=== PATIENT | female | born 1945 | race African-American/Black ===

== ENCOUNTER 2017-04-08 04:59 | Inpatient (IN) | payer MEDICARE, OTHER ==
[~2017-04-08] VITALS: Ht 167.6 cm; Wt 78.0 kg
[~2017-04-08 04:59] MED LIST: ALBUTEROL INHALER INH; ALPR-392 PO; ASPI-1073 PO; ATOR20TA PO; CLON0.1T PO; DIGO-26 PO; DILT360C27 PO; ELIQUIS PO; ESOM40CA PO; MINO2.5T19 PO; REV20 PO
[2017-04-08 05:41] LABS: BASOPHILS % 0.3 % (0.0-2.0); EOSINOPHILS % 0.4 % (0.0-5.0); HEMOGLOBIN. 10.4 g/dL (12.0-16.0); LYMPHOCYTES % 11.7 % (20.0-50.0); MEAN CORPUSCULAR HEMOGLOBIN 25.5 pg (28.0-32.0); MEAN CORPUSCULAR VOLUME 80.7 fL (81.0-99.0); MEAN PLATELET VOLUME 8.7 fl (7.4-10.4); MONOCYTES % 7.5 % (2.0-8.0); NEUTROPHILS % 80.1 % (40.0-76.0); PLATELET 175 x1000/uL (130-400); RED BLOOD CELL COUNT 4.09 mill/uL (4.2-5.4); RED CELL DISTRIBUTION WIDTH 18.4 % (11.6-14.6)
[2017-04-08 05:50] LABS: INR 1.1; PROTHROMBIN TIME 11.2 sec (9.4-11.6)
[2017-04-08 05:53] LABS: CARBON DIOXIDE 22 mEq/L (21-32); CHLORIDE 112 mEq/L (98-107)
[2017-04-08] MEDS ORDERED: MORPHINE SULFATE 4 MG/ML CPJ (NOT FOR IM USE) IV STA (07:03)
[2017-04-08] MEDS ORDERED: ONDANSETRON HCL 4MG/2ML VIAL IV STA (07:03)
[2017-04-08 07:49] LABS: INR 1.1; PARTIAL THROMBOPLASTIN TIME 33.1 sec (23.4-31.0); PROTHROMBIN TIME 11.4 sec (9.4-11.6)
[2017-04-08] MEDS ORDERED: PANTOPRAZOLE 80 MG in SODIUM CHLORIDE 0.9% 100 ML IV SCH (11:45)
[2017-04-08] MEDS ORDERED: DIPHENHYDRAMINE 50MG/ML VIAL IV PRN (11:45)
[2017-04-08] MEDS ORDERED: ACETAMINOPHEN 325MG TABLET PO PRN (11:45)
[2017-04-08] MEDS ORDERED: NA PHOS,M-B/NA PHOS,DI-BA ENEMA 118ML PR PRN (11:45)
[2017-04-08] MEDS ORDERED: CLONIDINE 0.1MG TABLET PO PRN ×2 (11:45→12:45)
[2017-04-08] MEDS ORDERED: NITROGLYCERIN 0.4MG TABLET SL SL PRN (11:45)
[2017-04-08] MEDS ORDERED: LORAZEPAM 2MG/ML CPJ IV PRN (11:45)
[2017-04-08] MEDS ORDERED: GUAIFENESIN 200MG/10ML SUGAR FREE UDC PO PRN (11:45)
[2017-04-08] MEDS ORDERED: DOCUSATE SODIUM 100MG CAPSULE PO PRN (11:45)
[2017-04-08] MEDS ORDERED: MORPHINE SULFATE 4 MG/ML CPJ (NOT FOR IM USE) IV PRN (11:45)
[2017-04-08] MEDS ORDERED: DILTIAZEM HCL 60MG TABLET PO SCH (12:00)
[2017-04-08] MEDS: DEXT 5%/LACTATED RINGERS 1,000 ML IV SCH (12:24)
[2017-04-08 12:32] LABS: FOLIC ACID (FOLATE) SERUM 10.6 ng/mL (>5.38)
[2017-04-08] MEDS ORDERED: HYDRALAZINE 20MG/ML VIAL IV PRN (12:45)
[2017-04-08 14:30] LABS: CREATINE KINASE 51 IU/L (26-192); TROPONIN I 0.05 ng/mL (0.00-0.04)
[2017-04-08 14:37] LABS: CREATINE KINASE MB FRACTION < 0.5 ng/mL (0.5-3.6)
[2017-04-08 15:06] LABS: DIGOXIN < 0.1 ng/mL (0.9-2.0)
[2017-04-08] MEDS ORDERED: FERROUS SULFATE 325MG TABLET PO SCH (17:00)
[2017-04-08] MEDS ORDERED: KCL 20MEQ/100ML PREMIX 100 ML IV SCH (19:20)
[2017-04-08 20:00] VITALS: BP_SYST 157; BP_SYST 92; BP_DIAS 55; BP_DIAS 68
[2017-04-08 20:47] LABS: HEMATOCRIT 35.8 % (36.0-48.0); HEMOGLOBIN 11.1 g/dL (12.0-16.0); MEAN CORPUSCULAR HEMOGLOBIN 25.3 pg (28.0-32.0); MEAN CORPUSCULAR VOLUME 81.5 fL (81.0-99.0); PLATELET 180 x1000/uL (130-400); RED CELL DISTRIBUTION WIDTH 17.9 % (11.6-14.6)
[2017-04-08] MEDS: MINOXIDIL 2.5MG TABLET PO SCH (20:50)
[2017-04-08] MEDS: FERROUS SULFATE 325MG TABLET PO SCH (20:50)
[2017-04-08] MEDS: ASCORBIC ACID 500 MG TABLET PO SCH (20:50)
[2017-04-08] MEDS: TRAMADOL 50MG TABLET PO PRN (20:51)
[2017-04-08] MEDS: DILTIAZEM HCL 90MG TABLET PO SCH (20:51)
[2017-04-08] MEDS: SILDENAFIL CITRATE 20MG TABLET PO SCH (22:00)
[2017-04-09] VITALS: BP 108/48
[2017-04-09] MEDS: PANTOPRAZOLE 80 MG in SODIUM CHLORIDE 0.9% 100 ML IV SCH ×2 (01:55→13:08)
[2017-04-09 04:00] VITALS: BP 114/62
[2017-04-09] MEDS: ONDANSETRON HCL 4MG/2ML VIAL IV PRN (06:26)
[2017-04-09] MEDS: SILDENAFIL CITRATE 20MG TABLET PO SCH ×3 (06:27→21:12)
[2017-04-09] MEDS: DILTIAZEM HCL 90MG TABLET PO SCH ×4 (06:28→18:04)
[2017-04-09] MEDS: DEXT 5%/LACTATED RINGERS 1,000 ML IV SCH (06:29)
[2017-04-09 07:46] LABS: BASOPHILS % 0.3 % (0.0-2.0); EOSINOPHILS % 1.3 % (0.0-5.0); HEMATOCRIT. 33.5 % (36.0-48.0); HEMOGLOBIN. 10.6 g/dL (12.0-16.0); LYMPHOCYTES % 14.7 % (20.0-50.0); MEAN CORPUSCULAR HEMOGLOBIN 25.6 pg (28.0-32.0); MEAN CORPUSCULAR VOLUME 80.5 fL (81.0-99.0); MEAN PLATELET VOLUME 9.3 fl (7.4-10.4); MONOCYTES % 12.7 % (2.0-8.0); PLATELET 175 x1000/uL (130-400); RED BLOOD CELL COUNT 4.16 mill/uL (4.2-5.4); RED CELL DISTRIBUTION WIDTH 18.5 % (11.6-14.6)
[2017-04-09 08:00] VITALS: BP 127/73
[2017-04-09 08:11] LABS: CARBON DIOXIDE 22 mEq/L (21-32); CHLORIDE 114 mEq/L (98-107); HDL CHOLESTEROL 38 mg/dL (40-59); LDL CHOLESTEROL 67 mg/dL (5-100); TROPONIN I 0.04 ng/mL (0.00-0.04)
[2017-04-09] MEDS: FERROUS SULFATE 325MG TABLET PO SCH ×3 (08:11→18:04)
[2017-04-09] MEDS: MINOXIDIL 2.5MG TABLET PO SCH ×2 (10:16→21:11)
[2017-04-09] MEDS: ASCORBIC ACID 500 MG TABLET PO SCH ×2 (10:16→21:11)
[2017-04-09 12:17] VITALS: BP 165/85
[2017-04-09] MEDS ORDERED: POTASSIUM CHLORIDE INJ 40 MEQ in DEXT 5% WATER 250 ML IV NR (13:00)
[2017-04-09] MEDS ORDERED: FURO80TA3 PO (13:53)
[2017-04-09] MEDS ORDERED: POTA20TA82 PO (13:53)
[2017-04-09] MEDS ORDERED: AMBR5TAB3 PO (13:54)
[2017-04-09] MEDS ORDERED: ALPRAZOLAM 0.5 MG TABLET PO PRN (14:30)
[2017-04-09 16:00] VITALS: BP 148/82
[2017-04-09] MEDS: LETAIRIS 5 MG PO SCH (18:51)
[2017-04-09 20:00] VITALS: BP 125/59
[2017-04-10] VITALS (7 sets, daily range): BP systolic 88–146; BP diastolic 14–92
[2017-04-10] MEDS: DILTIAZEM HCL 90MG TABLET PO SCH ×5 (00:21→23:56)
[2017-04-10] MEDS: DEXT 5%/LACTATED RINGERS 1,000 ML IV SCH ×3 (00:21→12:51)
[2017-04-10] MEDS: PANTOPRAZOLE 80 MG in SODIUM CHLORIDE 0.9% 100 ML IV SCH ×3 (00:21→17:03)
[2017-04-10] MEDS: SILDENAFIL CITRATE 20MG TABLET PO SCH ×3 (05:42→21:25)
[2017-04-10] MEDS: FERROUS SULFATE 325MG TABLET PO SCH ×3 (05:42→17:58)
[2017-04-10 07:41] LABS: HEMATOCRIT 33.3 % (36.0-48.0); HEMOGLOBIN 10.6 g/dL (12.0-16.0)
[2017-04-10] MEDS: ASCORBIC ACID 500 MG TABLET PO SCH ×2 (08:58→21:25)
[2017-04-10] MEDS: MINOXIDIL 2.5MG TABLET PO SCH ×2 (08:59→21:26)
[2017-04-10] MEDS: LETAIRIS 5 MG PO SCH (08:59)
[2017-04-10] MEDS ORDERED: POTASSIUM CHLORIDE 20MEQ TABLET SR PO NR (13:00)
[2017-04-10] MEDS: APIXABAN 5 MG TABLET PO SCH (15:37)
[2017-04-10] MEDS: ZOLPIDEM TARTRATE 5MG TABLET PO PRN (21:31)
[2017-04-11] VITALS: BP 130/54
[2017-04-11] MEDS: DEXT 5%/LACTATED RINGERS 1,000 ML IV SCH (02:03)
[2017-04-11] MEDS: PANTOPRAZOLE 80 MG in SODIUM CHLORIDE 0.9% 100 ML IV SCH ×2 (02:03→12:20)
[2017-04-11 04:00] VITALS: BP 110/51
[2017-04-11] MEDS: SILDENAFIL CITRATE 20MG TABLET PO SCH ×3 (07:26→22:22)
[2017-04-11] MEDS: DILTIAZEM HCL 90MG TABLET PO SCH ×3 (07:27→17:33)
[2017-04-11 08:00] VITALS: BP 154/58
[2017-04-11] MEDS: BUDESONIDE 0.5MG/2ML NEB HHN SCH ×2 (08:24→19:50)
[2017-04-11] MEDS: ASCORBIC ACID 500 MG TABLET PO SCH ×2 (08:50→22:22)
[2017-04-11] MEDS: APIXABAN 5 MG TABLET PO SCH (08:50)
[2017-04-11] MEDS: MINOXIDIL 2.5MG TABLET PO SCH ×2 (08:50→21:00)
[2017-04-11] MEDS: LETAIRIS 5 MG PO SCH (08:51)
[2017-04-11] MEDS: FERROUS SULFATE 325MG TABLET PO SCH ×3 (08:51→17:15)
[2017-04-11 10:00] LABS: HEMATOCRIT 33.6 % (36.0-48.0); HEMOGLOBIN 10.6 g/dL (12.0-16.0)
[2017-04-11 12:00] VITALS: BP 155/56
[2017-04-11] MEDS: ONDANSETRON HCL 4MG/2ML VIAL IV PRN ×2 (12:20→17:34)
[2017-04-11 16:00] VITALS: BP 131/49
[2017-04-11] MEDS: DIGOXIN 125MCG TABLET PO SCH (17:34)
[2017-04-11] MEDS: IPRATROPIUM/ALBUTEROL 0.5-3(2.5)MG/3ML NEB INH PRN (19:51)
[2017-04-11 20:00] VITALS: BP 120/40
[2017-04-11] MEDS ORDERED: PANTOPRAZOLE SODIUM 40 MG/VIAL IV ONE (21:48)
[2017-04-11] MEDS: ZOLPIDEM TARTRATE 5MG TABLET PO PRN (22:43)
[2017-04-12] VITALS: BP 143/40
[2017-04-12] MEDS: PANTOPRAZOLE 80 MG in SODIUM CHLORIDE 0.9% 100 ML IV SCH ×3 (00:03→22:05)
[2017-04-12] MEDS: DILTIAZEM HCL 90MG TABLET PO SCH ×4 (00:08→18:17)
[2017-04-12] MEDS: DEXT 5%/LACTATED RINGERS 1,000 ML IV SCH ×3 (01:02→21:08)
[2017-04-12 04:00] VITALS: BP 134/48
[2017-04-12 06:14] LABS: BASOPHILS % 0.4 % (0.0-2.0); EOSINOPHILS % 0.6 % (0.0-5.0); HEMATOCRIT. 31.5 % (36.0-48.0); HEMOGLOBIN. 10.2 g/dL (12.0-16.0); LYMPHOCYTES % 22.6 % (20.0-50.0); MEAN CORPUSCULAR HEMOGLOBIN 25.4 pg (28.0-32.0); MEAN PLATELET VOLUME 9.5 fl (7.4-10.4); MONOCYTES % 14.3 % (2.0-8.0); NEUTROPHILS % 62.1 % (40.0-76.0); PLATELET 198 x1000/uL (130-400); RED BLOOD CELL COUNT 3.99 mill/uL (4.2-5.4); RED CELL DISTRIBUTION WIDTH 17.9 % (11.6-14.6)
[2017-04-12] MEDS: FERROUS SULFATE 325MG TABLET PO SCH ×3 (06:14→17:15)
[2017-04-12] MEDS: SILDENAFIL CITRATE 20MG TABLET PO SCH ×3 (06:15→21:08)
[2017-04-12 08:00] VITALS: BP 132/52
[2017-04-12] MEDS: ASCORBIC ACID 500 MG TABLET PO SCH ×2 (09:28→21:07)
[2017-04-12] MEDS: MINOXIDIL 2.5MG TABLET PO SCH ×2 (09:29→21:07)
[2017-04-12] MEDS: LETAIRIS 5 MG PO SCH (09:29)
[2017-04-12] MEDS: BUDESONIDE 0.5MG/2ML NEB HHN SCH ×2 (09:40→21:26)
[2017-04-12] MEDS: IPRATROPIUM/ALBUTEROL 0.5-3(2.5)MG/3ML NEB INH PRN (09:40)
[2017-04-12] MEDS ORDERED: POTASSIUM CHLORIDE 20MEQ TABLET SR PO NR ×2 (11:15→15:15)
[2017-04-12] MEDS: ONDANSETRON HCL 4MG/2ML VIAL IV PRN (11:49)
[2017-04-12 12:00] VITALS: BP 113/43
[2017-04-12] MEDS ORDERED: METOCLOPRAMIDE HCL 10MG/2ML VIAL IV PRN (12:00)
[2017-04-12] MEDS: APIXABAN 5 MG TABLET PO SCH ×2 (12:28→18:17)
[2017-04-12 16:00] VITALS: BP 128/49
[2017-04-12] MEDS: DIGOXIN 125MCG TABLET PO SCH (18:17)
[2017-04-12 20:00] VITALS: BP 141/85
[2017-04-12] MEDS ORDERED: BUDESONIDE 0.5MG/2ML NEB ONE (21:30)
[2017-04-13] VITALS (7 sets, daily range): BP systolic 116–165; BP diastolic 45–74
[2017-04-13] MEDS: DILTIAZEM HCL 90MG TABLET PO SCH ×5 (00:30→23:36)
[2017-04-13] MEDS: ZOLPIDEM TARTRATE 5MG TABLET PO PRN (02:05)
[2017-04-13] MEDS: TRAMADOL 50MG TABLET PO PRN ×2 (02:07→08:25)
[2017-04-13] MEDS: PANTOPRAZOLE 80 MG in SODIUM CHLORIDE 0.9% 100 ML IV SCH ×2 (05:54→16:41)
[2017-04-13] MEDS: FERROUS SULFATE 325MG TABLET PO SCH ×3 (05:56→16:41)
[2017-04-13] MEDS: SILDENAFIL CITRATE 20MG TABLET PO SCH ×3 (05:57→21:54)
[2017-04-13 06:10] LABS: HEMATOCRIT. 31.6 % (36.0-48.0); HEMOGLOBIN. 10.1 g/dL (12.0-16.0); MEAN CORPUSCULAR HEMOGLOBIN 25.1 pg (28.0-32.0); MEAN PLATELET VOLUME 9.8 fl (7.4-10.4); PLATELET 207 x1000/uL (130-400); RED CELL DISTRIBUTION WIDTH 17.2 % (11.6-14.6)
[2017-04-13] MEDS: APIXABAN 5 MG TABLET PO SCH ×2 (08:24→16:41)
[2017-04-13] MEDS: MINOXIDIL 2.5MG TABLET PO SCH ×2 (08:25→21:44)
[2017-04-13] MEDS: ASCORBIC ACID 500 MG TABLET PO SCH ×2 (08:26→21:44)
[2017-04-13] MEDS: LETAIRIS 5 MG PO SCH (08:30)
[2017-04-13] MEDS ORDERED: METHYLPREDNISOLONE SOD SUCC 125 MG/2 ML VIAL IV NR (11:30)
[2017-04-13] MEDS ORDERED: POTASSIUM CHLORIDE 20MEQ TABLET SR PO NR (11:30)
[2017-04-13] MEDS: ONDANSETRON HCL 4MG/2ML VIAL IV PRN ×2 (12:04→23:36)
[2017-04-13] MEDS: DEXT 5%/LACTATED RINGERS 1,000 ML IV SCH (12:04)
[2017-04-13] MEDS ORDERED: DILTIAZEM HCL 5MG/ML 5ML VIAL IV PRN (12:30)
[2017-04-13] MEDS: COLCHICINE 0.6MG TABLET PO SCH ×2 (12:50→21:44)
[2017-04-13] MEDS: ASPIRIN 81MG EC TABLET PO SCH (12:52)
[2017-04-13 16:01] LABS: PLATELET ESTIMATE NORMAL
[2017-04-13] MEDS: DIGOXIN 125MCG TABLET PO SCH (16:55)
[2017-04-14 04:30] VITALS: BP 128/51
[2017-04-14] MEDS: PANTOPRAZOLE 80 MG in SODIUM CHLORIDE 0.9% 100 ML IV SCH ×2 (05:14→12:00)
[2017-04-14] MEDS: DILTIAZEM HCL 90MG TABLET PO SCH ×2 (05:15→11:40)
[2017-04-14] MEDS: SILDENAFIL CITRATE 20MG TABLET PO SCH ×2 (05:15→13:59)
[2017-04-14 08:00] VITALS: BP 132/62
[2017-04-14] MEDS: ASCORBIC ACID 500 MG TABLET PO SCH (08:38)
[2017-04-14] MEDS: ASPIRIN 81MG EC TABLET PO SCH (08:39)
[2017-04-14] MEDS: APIXABAN 5 MG TABLET PO SCH (08:39)
[2017-04-14] MEDS: FERROUS SULFATE 325MG TABLET PO SCH ×2 (08:39→12:01)
[2017-04-14] MEDS: COLCHICINE 0.6MG TABLET PO SCH (08:39)
[2017-04-14] MEDS: LETAIRIS 5 MG PO SCH (08:43)
[2017-04-14] MEDS: MINOXIDIL 2.5MG TABLET PO SCH (08:59)
[2017-04-14] MEDS ORDERED: METOCLOPRAMIDE HCL 10MG TABLET PO PRN (12:15)
[2017-04-14 14:09] VITALS: BP 132/66
== END 2017-04-14 14:50 | disposition home or self-care (01) | DRG 254 ==
LOC: ER 04:59 → SUPCPDRO 11:38 → 5WST 14:02 → EDBEDREQ 14:04 → ENRESERV 17:41
PROVIDERS: ADMIT Internal Medicine; ATTEND Internal Medicine
DX: K92.1 Melena (principal); J96.00 Acute respiratory failure, unspecified whether with hypoxia or hypercapnia; N17.0 Acute kidney failure with tubular necrosis; E44.1 Mild protein-calorie malnutrition; I13.0 Hypertensive heart and chronic kidney disease with heart failure and stage 1 through stage 4 chronic kidney disease, or unspecified chronic kidney disease; I50.32 Chronic diastolic (congestive) heart failure; D62 Acute posthemorrhagic anemia; J44.1 Chronic obstructive pulmonary disease with (acute) exacerbation; K52.9 Noninfective gastroenteritis and colitis, unspecified; E87.6 Hypokalemia; N18.9 Chronic kidney disease, unspecified; I48.2 Chronic atrial fibrillation; K21.9 Gastro-esophageal reflux disease without esophagitis; I73.9 Peripheral vascular disease, unspecified; D50.9 Iron deficiency anemia, unspecified; M10.9 Gout, unspecified; E78.00 Pure hypercholesterolemia, unspecified; E87.5 Hyperkalemia; E78.5 Hyperlipidemia, unspecified; F41.9 Anxiety disorder, unspecified; I25.10 Atherosclerotic heart disease of native coronary artery without angina pectoris; Z79.01 Long term (current) use of anticoagulants; Z68.27 Body mass index [BMI] 27.0-27.9, adult; Z79.82 Long term (current) use of aspirin; Z82.49 Family history of ischemic heart disease and other diseases of the circulatory system; Z87.891 Personal history of nicotine dependence; Z99.81 Dependence on supplemental oxygen; Z88.8 Allergy status to other drugs, medicaments and biological substances; Z88.1 Allergy status to other antibiotic agents; Z79.899 Other long term (current) drug therapy; Z95.820 Peripheral vascular angioplasty status with implants and grafts
CPT/HCPCS: 36415; 71010; 74176; 80048; 80053; 80061; 80162; 82270; 82550; 82553; 82607; 82728; 82746; 83036; 83540; 83550; 83690; 83735; 84443; 84484; 84550; 85014; 85018; 85025; 85027; 85610; 85730; 86850; 86900; 87015; 87045; 87427; 87449; 87493; 89055; 93005; 93970; 94664; 96361; 96374; 99285; C1893; C9113; J1200; J2270; J2405; J2765; J2930; J3480; J7040; J7050; J7060; J7620; J7626

== ENCOUNTER 2017-04-27 09:05 | Inpatient (IN) | payer MEDICARE, OTHER ==
[~2017-04-27] VITALS: Ht 162.6 cm; Wt 83.0 kg
[~2017-04-27 09:05] MED LIST changes: +AMBR5TAB3 PO; +FURO80TA3 PO; +POTA20TA82 PO
[2017-04-27 09:58] LABS: BASOPHILS % 1.1 % (0.0-2.0); EOSINOPHILS % 1.6 % (0.0-5.0); HEMATOCRIT. 31.1 % (36.0-48.0); LYMPHOCYTES % 19.2 % (20.0-50.0); MEAN CORPUSCULAR HEMOGLOBIN 26.3 pg (28.0-32.0); MEAN CORPUSCULAR VOLUME 82.2 fL (81.0-99.0); MEAN PLATELET VOLUME 8.7 fl (7.4-10.4); MONOCYTES % 8.2 % (2.0-8.0); NEUTROPHILS % 69.9 % (40.0-76.0); PLATELET 189 x1000/uL (130-400); RED BLOOD CELL COUNT 3.79 mill/uL (4.2-5.4); RED CELL DISTRIBUTION WIDTH 20.2 % (11.6-14.6)
[2017-04-27 10:05] LABS: CHLORIDE 108 mEq/L (98-107)
[2017-04-27 10:07] LABS: INR 1.1; PROTHROMBIN TIME 11.9 sec (9.4-11.6)
[2017-04-27 10:12] LABS: CARBON DIOXIDE 25 mEq/L (21-32)
[2017-04-27 12:00] LABS: CLARITY URINE CLEAR (CLEAR); COLOR URINE YELLOW (YELLOW); GLUCOSE URINE NEGATIVE (NEGATIVE); KETONES URINE NEGATIVE (NEGATIVE); LEUKOCYTE ESTERASE URINE TRACE (NEGATIVE); NITRITE URINE NEGATIVE (NEGATIVE); OCCULT BLOOD URINE NEGATIVE (NEGATIVE); PROTEIN URINE NEGATIVE (NEGATIVE); SPECIFIC GRAVITY URINE 1.009 (1.005-1.030); UROBILINOGEN URINE 0.2 E.U./dL (0.2-1.0)
[2017-04-27 12:41] LABS: TROPONIN I < 0.02 ng/mL (0.00-0.04)
[2017-04-27 15:03] LABS: BG BASE EXCESS -0.8 mmol/L (-2.0-2.0); BG CARBOXYHEMOGLOBIN 0.4 % (0.5-1.5); BG DEOXYHEMOGLOBIN 11.8 % (0.0-5.0); BG FRACTION INSPIRED OXYGEN 36; BG HCO3 ACT 22.6 mmol/L (22.0-26.0); BG METHEMOGLOBIN 0.1 % (0.0-1.5); BG OXYGEN SATURATION 88.1 % (92.0-98.5); BG OXYHEMOGLOBIN 87.7 % (94.0-97.0); BG PCO2 32.5 mmHg (35.0-45.0); BG PO2 55.5 mmHg (75.0-100.0); BG SAMPLE SITE RIGHT BRACHIAL; BG VENT MODE NASAL CANNULA
[2017-04-27] MEDS ORDERED: NA PHOS,M-B/NA PHOS,DI-BA ENEMA 118ML PR PRN (15:30)
[2017-04-27] MEDS ORDERED: ONDANSETRON HCL 4MG/2ML VIAL IV PRN (15:30)
[2017-04-27] MEDS ORDERED: LORAZEPAM 2MG/ML CPJ IV PRN (15:30)
[2017-04-27] MEDS ORDERED: IPRATROPIUM/ALBUTEROL 0.5-3(2.5)MG/3ML NEB INH PRN (15:30)
[2017-04-27] MEDS ORDERED: NITROGLYCERIN 0.4MG TABLET SL SL PRN (15:30)
[2017-04-27] MEDS ORDERED: MAGNESIUM/ALUMINUM HYDROXIDE/SIMETHICONE 30ML UDC PO PRN (15:30)
[2017-04-27] MEDS ORDERED: ACETAMINOPHEN 325MG TABLET PO PRN (15:30)
[2017-04-27] MEDS ORDERED: GUAIFENESIN 200MG/10ML SUGAR FREE UDC PO PRN (15:30)
[2017-04-27 16:52] LABS: DIGOXIN 0.1 ng/mL (0.9-2.0)
[2017-04-27] MEDS ORDERED: LEVOFLOXACIN 500MG PREMIX 100 ML IV SCH (18:15)
[2017-04-27 21:00] VITALS: BP 144/47
[2017-04-27] MEDS ORDERED: FAMOTIDINE 20MG/2ML VIAL IV SCH (21:00)
[2017-04-27] MEDS ORDERED: ALLO100T PO (21:57)
[2017-04-27] MEDS ORDERED: FERR325T6 PO (21:57)
[2017-04-27 22:00] VITALS: BP 144/47
[2017-04-27] MEDS: APIXABAN 2.5 MG TABLET PO SCH (23:18)
[2017-04-27] MEDS: SILDENAFIL CITRATE 20MG TABLET PO SCH (23:18)
[2017-04-27] MEDS: SPIRONOLACTONE 25MG TABLET PO SCH (23:18)
[2017-04-28] VITALS: BP 142/64
[2017-04-28] MEDS ORDERED: LEVOFLOXACIN 500MG PREMIX 100 ML IV SCH
[2017-04-28 00:25] LABS: CREATINE KINASE MB FRACTION 0.6 ng/mL (0.5-3.6); TROPONIN I 0.02 ng/mL (0.00-0.04)
[2017-04-28] MEDS: FUROSEMIDE 40MG/4ML VIAL IVP SCH ×3 (00:28→21:57)
[2017-04-28] MEDS: DIPHENHYDRAMINE 50MG/ML VIAL IV PRN ×2 (00:28→23:34)
[2017-04-28 04:00] VITALS: BP 128/44
[2017-04-28] MEDS: SILDENAFIL CITRATE 20MG TABLET PO SCH ×3 (06:51→23:34)
[2017-04-28 08:00] VITALS: BP 135/58
[2017-04-28 09:00] LABS: CREATINE KINASE MB FRACTION 0.7 ng/mL (0.5-3.6); TROPONIN I 0.02 ng/mL (0.00-0.04)
[2017-04-28] MEDS: APIXABAN 2.5 MG TABLET PO SCH (09:08)
[2017-04-28] MEDS: FAMOTIDINE 20MG/2ML VIAL IV SCH (09:08)
[2017-04-28] MEDS: ALLOPURINOL 100 MG TABLET PO SCH (09:09)
[2017-04-28] MEDS: SPIRONOLACTONE 25MG TABLET PO SCH ×2 (09:09→22:00)
[2017-04-28 12:00] VITALS: BP 130/61
[2017-04-28 16:00] VITALS: BP 136/89
[2017-04-28] MEDS: APIXABAN 5 MG TABLET PO SCH (17:16)
[2017-04-28] MEDS ORDERED: NON FORMULARY PATIENT HOME MED EA PO SCH (18:15)
[2017-04-28] MEDS: LEVOFLOXACIN 250MG PREMIX 50 ML IV SCH (23:33)
[2017-04-29] MEDS: CLONIDINE 0.1MG TABLET PO PRN ×2 (05:09→23:46)
[2017-04-29] MEDS: SILDENAFIL CITRATE 20MG TABLET PO SCH ×3 (06:31→21:11)
[2017-04-29 08:00] VITALS: BP 152/67
[2017-04-29] MEDS ORDERED: NON FORMULARY PATIENT HOME MED EA PO SCH (09:00)
[2017-04-29] MEDS: FUROSEMIDE 40MG/4ML VIAL IVP SCH ×2 (10:27→21:10)
[2017-04-29] MEDS: SPIRONOLACTONE 25MG TABLET PO SCH ×2 (10:27→21:11)
[2017-04-29] MEDS: FAMOTIDINE 20MG/2ML VIAL IV SCH (10:27)
[2017-04-29] MEDS: ALLOPURINOL 100 MG TABLET PO SCH (10:28)
[2017-04-29] MEDS: DOCUSATE SODIUM 100MG CAPSULE PO PRN (10:28)
[2017-04-29] MEDS: APIXABAN 5 MG TABLET PO SCH ×2 (10:28→17:00)
[2017-04-29 12:00] VITALS: BP 161/89
[2017-04-29 13:24] LABS: BASOPHILS % 1.5 % (0.0-2.0); EOSINOPHILS % 2.3 % (0.0-5.0); HEMATOCRIT. 33.9 % (36.0-48.0); HEMOGLOBIN. 10.6 g/dL (12.0-16.0); LYMPHOCYTES % 19.9 % (20.0-50.0); MEAN CORPUSCULAR HEMOGLOBIN 25.7 pg (28.0-32.0); MEAN CORPUSCULAR VOLUME 81.9 fL (81.0-99.0); MONOCYTES % 9.8 % (2.0-8.0); NEUTROPHILS % 66.5 % (40.0-76.0); PLATELET 205 x1000/uL (130-400); RED BLOOD CELL COUNT 4.13 mill/uL (4.2-5.4); RED CELL DISTRIBUTION WIDTH 20.3 % (11.6-14.6)
[2017-04-29] MEDS: DILTIAZEM HCL 90MG TABLET PO SCH ×3 (14:00→23:46)
[2017-04-29 16:00] VITALS: BP 169/83
[2017-04-29] MEDS: DIGOXIN 125MCG TABLET PO SCH (19:33)
[2017-04-29 20:00] VITALS: BP 168/75
[2017-04-29] MEDS: TRAMADOL 50MG TABLET PO PRN (20:14)
[2017-04-29] MEDS: MORPHINE SULFATE 2 MG/ML CPJ (NOT FOR IM USE) IV PRN (23:34)
[2017-04-29] MEDS: ZOLPIDEM TARTRATE 5MG TABLET PO PRN (23:35)
[2017-04-29] MEDS: LEVOFLOXACIN 250MG PREMIX 50 ML IV SCH (23:47)
[2017-04-30] VITALS: BP 165/73
[2017-04-30 04:00] VITALS: BP 130/65
[2017-04-30] MEDS: DILTIAZEM HCL 90MG TABLET PO SCH ×4 (06:09→23:10)
[2017-04-30] MEDS: SILDENAFIL CITRATE 20MG TABLET PO SCH ×3 (06:09→21:30)
[2017-04-30 08:00] VITALS: BP 128/63
[2017-04-30] MEDS: MORPHINE SULFATE 2 MG/ML CPJ (NOT FOR IM USE) IV PRN ×2 (08:40→21:29)
[2017-04-30] MEDS: ALLOPURINOL 100 MG TABLET PO SCH (10:06)
[2017-04-30] MEDS: FUROSEMIDE 40MG/4ML VIAL IVP SCH ×2 (10:06→21:30)
[2017-04-30] MEDS: FAMOTIDINE 20MG/2ML VIAL IV SCH (10:06)
[2017-04-30] MEDS: APIXABAN 5 MG TABLET PO SCH ×2 (10:06→18:18)
[2017-04-30] MEDS: SPIRONOLACTONE 25MG TABLET PO SCH ×2 (10:07→21:29)
[2017-04-30 12:00] VITALS: BP 120/60
[2017-04-30 16:00] VITALS: BP 140/61
[2017-04-30] MEDS: DIGOXIN 125MCG TABLET PO SCH (18:19)
[2017-04-30 20:00] VITALS: BP 142/64
[2017-04-30] MEDS: ZOLPIDEM TARTRATE 5MG TABLET PO PRN (23:10)
[2017-04-30] MEDS: LEVOFLOXACIN 250MG PREMIX 50 ML IV SCH (23:12)
[2017-05-01] VITALS: BP 155/77
[2017-05-01 08:00] VITALS: BP 155/67
[2017-05-01] MEDS: MORPHINE SULFATE 2 MG/ML CPJ (NOT FOR IM USE) IV PRN (09:50)
[2017-05-01 09:53] LABS: EOSINOPHILS % 2.1 % (0.0-5.0); HEMATOCRIT. 33.4 % (36.0-48.0); HEMOGLOBIN. 10.7 g/dL (12.0-16.0); LYMPHOCYTES % 22.9 % (20.0-50.0); MEAN CORPUSCULAR VOLUME 81.3 fL (81.0-99.0); MEAN PLATELET VOLUME 9.8 fl (7.4-10.4); MONOCYTES % 13.4 % (2.0-8.0); NEUTROPHILS % 60.6 % (40.0-76.0); PLATELET 204 x1000/uL (130-400); RED BLOOD CELL COUNT 4.11 mill/uL (4.2-5.4)
[2017-05-01 12:00] VITALS: BP_SYST 123; BP_SYST 147; BP_DIAS 67; BP_DIAS 68
[2017-05-01] MEDS ORDERED: METHYLPREDNISOLONE SOD SUCC 125 MG/2 ML VIAL IV NR (12:30)
[2017-05-01] MEDS: DOCUSATE SODIUM 100MG CAPSULE PO PRN (12:47)
[2017-05-01 16:20] VITALS: BP 146/71
[2017-05-01] MEDS ORDERED: COLCHICINE 0.6MG TABLET PO SCH (17:00)
[2017-05-01] MEDS: DIGOXIN 125MCG TABLET PO SCH (18:46)
[2017-05-01 20:00] VITALS: BP_SYST 171; BP_SYST 182; BP_DIAS 102; BP_DIAS 89
[2017-05-01] MEDS: FUROSEMIDE 40MG/4ML VIAL IVP SCH (21:50)
[2017-05-01] MEDS: SPIRONOLACTONE 25MG TABLET PO SCH (21:50)
[2017-05-01] MEDS: TRAMADOL 50MG TABLET PO PRN (21:52)
[2017-05-01] MEDS: SILDENAFIL CITRATE 20MG TABLET PO SCH (21:52)
[2017-05-01] MEDS: CEFAZOLIN 1000MG PREMIX 50 ML IV SCH (21:53)
[2017-05-01] MEDS: DILTIAZEM HCL 90MG TABLET PO SCH (23:24)
[2017-05-01] MEDS: ZOLPIDEM TARTRATE 5MG TABLET PO PRN (23:24)
[2017-05-01] MEDS: LEVOFLOXACIN 250MG PREMIX 50 ML IV SCH (23:25)
[2017-05-02] VITALS: BP 105/69
[2017-05-02 04:00] VITALS: BP 170/86
[2017-05-02] MEDS: CLONIDINE 0.1MG TABLET PO PRN (05:03)
[2017-05-02] MEDS: SILDENAFIL CITRATE 20MG TABLET PO SCH ×2 (06:39→14:18)
[2017-05-02] MEDS: DILTIAZEM HCL 90MG TABLET PO SCH ×2 (06:40→12:23)
[2017-05-02 08:00] VITALS: BP 96/69
[2017-05-02] MEDS ORDERED: COLCHICINE 0.6MG TABLET PO SCH (09:00)
[2017-05-02] MEDS: CEFAZOLIN 1000MG PREMIX 50 ML IV SCH (09:42)
[2017-05-02] MEDS: APIXABAN 5 MG TABLET PO SCH (09:43)
[2017-05-02] MEDS: FUROSEMIDE 40MG/4ML VIAL IVP SCH (09:43)
[2017-05-02] MEDS: ALLOPURINOL 100 MG TABLET PO SCH (09:43)
[2017-05-02] MEDS: SPIRONOLACTONE 25MG TABLET PO SCH (09:43)
[2017-05-02] MEDS: FAMOTIDINE 20MG/2ML VIAL IV SCH (09:43)
[2017-05-02 11:18] VITALS: BP_SYST 125; BP_SYST 136; BP_SYST 143; BP_DIAS 53; BP_DIAS 59; BP_DIAS 61
[2017-05-02 12:00] VITALS: BP 125/53
[2017-05-02 16:00] VITALS: BP 142/64
== END 2017-05-02 16:30 | disposition home or self-care (01) | DRG 133 ==
LOC: ER 09:05 → 6WST 13:42 → ENRESERV 17:51 → 5WST 22:14
PROVIDERS: ADMIT Internal Medicine; ATTEND Internal Medicine
DX: J96.01 Acute respiratory failure with hypoxia (principal); N17.9 Acute kidney failure, unspecified; I50.33 Acute on chronic diastolic (congestive) heart failure; I48.1 Persistent atrial fibrillation; I27.20 Pulmonary hypertension, unspecified; E44.1 Mild protein-calorie malnutrition; Z99.81 Dependence on supplemental oxygen; J44.9 Chronic obstructive pulmonary disease, unspecified; I13.0 Hypertensive heart and chronic kidney disease with heart failure and stage 1 through stage 4 chronic kidney disease, or unspecified chronic kidney disease; N39.0 Urinary tract infection, site not specified; D63.8 Anemia in other chronic diseases classified elsewhere; E78.5 Hyperlipidemia, unspecified; F41.9 Anxiety disorder, unspecified; I25.10 Atherosclerotic heart disease of native coronary artery without angina pectoris; I73.9 Peripheral vascular disease, unspecified; K21.9 Gastro-esophageal reflux disease without esophagitis; M10.9 Gout, unspecified; N18.9 Chronic kidney disease, unspecified; R04.0 Epistaxis; Z82.49 Family history of ischemic heart disease and other diseases of the circulatory system; Z87.891 Personal history of nicotine dependence; Z88.0 Allergy status to penicillin; Z88.8 Allergy status to other drugs, medicaments and biological substances; Z68.31 Body mass index [BMI] 31.0-31.9, adult
CPT/HCPCS: 36415; 36600; 71010; 80048; 80053; 80061; 80162; 81001; 82375; 82550; 82553; 82805; 83036; 83735; 83880; 84484; 84550; 85025; 85610; 86850; 86900; 87077; 87086; 87186; 93005; 93970; 99285; J0690; J1200; J1940; J1956; J2270; J2930; J3490; J7030; J7050

== ENCOUNTER 2017-10-22 06:10 | Inpatient (IN) | payer MEDICARE, MEDICAID ==
[~2017-10-22] VITALS: Ht 167.6 cm; Wt 74.9 kg
[~2017-10-22 06:10] MED LIST changes: +ALLO100T PO; +FERR325T6 PO
[2017-10-22] MEDS ORDERED: LIDOCAINE HCL/PF 1% 10 MG/ML 30ML VIAL ONE (07:53)
[2017-10-22] MEDS ORDERED: IODIXANOL 320MG/ML 200ML BOTTLE ONE (07:53)
[2017-10-22] MEDS ORDERED: FENTANYL CITRATE/PF 50MCG/ML 2ML VIAL ONE (08:53)
[2017-10-22] MEDS ORDERED: MIDAZOLAM HCL 2 MG/2 ML VIAL ONE (08:53)
[2017-10-22] MEDS ORDERED: IOVERSOL 240MG/ML 100ML BOTTLE IV ONE (09:04)
[2017-10-22] MEDS ORDERED: CLOPIDOGREL 75MG TABLET ONE (09:44)
[2017-10-22] MEDS ORDERED: ASPIRIN 325MG TABLET ONE (09:44)
[2017-10-22] MEDS ORDERED: CLOPIDOGREL 75MG TABLET PO ONE (10:45)
[2017-10-22] MEDS ORDERED: ACETAMINOPHEN 500MG TABLET ONE (15:39)
[2017-10-22 16:40] VITALS: BP 139/79
[2017-10-22 16:42] VITALS: BP 139/79
[2017-10-22] MEDS ORDERED: ATROPINE SULFATE 1MG/10ML SYR IV PRN (17:08)
[2017-10-22] MEDS ORDERED: HEPARIN SODIUM 1,000 UNIT/1ML VIAL IV ONE (17:41)
[2017-10-22] MEDS: FUROSEMIDE 80MG TABLET PO SCH (17:44)
[2017-10-22 18:00] VITALS: BP 149/68
[2017-10-22] MEDS ORDERED: DIGOXIN 125MCG TABLET PO SCH (18:00)
[2017-10-22 19:30] VITALS: BP 158/71
[2017-10-22] MEDS: CLONIDINE 0.1MG TABLET PO SCH (20:41)
[2017-10-22] MEDS: MINOXIDIL 2.5MG TABLET PO SCH (20:41)
[2017-10-22] MEDS ORDERED: ATORVASTATIN CALCIUM 20MG TABLET PO SCH (21:00)
[2017-10-22 22:00] VITALS: BP_SYST 118; BP_SYST 150; BP_DIAS 61; BP_DIAS 65
[2017-10-22] MEDS: ACETAMINOPHEN 325MG TABLET PO PRN ×2 (22:13→22:17)
[2017-10-22] MEDS: SILDENAFIL CITRATE 20MG TABLET PO SCH (22:17)
[2017-10-23] VITALS (9 sets, daily range): BP systolic 114–155; BP diastolic 54–79
[2017-10-23] MEDS: ALBUTEROL (0.083%) 2.5MG/3ML NEB HHN SCH ×3 (05:29→13:49)
[2017-10-23] MEDS: SILDENAFIL CITRATE 20MG TABLET PO SCH ×2 (05:56→14:25)
[2017-10-23] MEDS ORDERED: OMEPRAZOLE 20MG CAPSULE EXTENDED RELEASE PO SCH (06:50)
[2017-10-23 07:03] LABS: BASOPHILS % 0.8 % (0.0-2.0); EOSINOPHILS % 8.6 % (0.0-5.0); HEMATOCRIT. 39.6 % (36.0-48.0); HEMOGLOBIN. 12.5 g/dL (12.0-16.0); LYMPHOCYTES % 28.6 % (20.0-50.0); MEAN CORPUSCULAR HEMOGLOBIN 25.6 pg (28.0-32.0); MEAN CORPUSCULAR VOLUME 81.1 fL (81.0-99.0); MEAN PLATELET VOLUME 9.8 fl (7.4-10.4); PLATELET 142 x1000/uL (130-400); RED BLOOD CELL COUNT 4.88 mill/uL (4.2-5.4); RED CELL DISTRIBUTION WIDTH 19.2 % (11.6-14.6)
[2017-10-23] MEDS: CLONIDINE 0.1MG TABLET PO SCH (08:34)
[2017-10-23] MEDS: FUROSEMIDE 80MG TABLET PO SCH (08:35)
[2017-10-23] MEDS ORDERED: POTASSIUM CHLORIDE 20MEQ TABLET SR PO SCH (09:00)
[2017-10-23] MEDS ORDERED: DILTIAZEM HCL 360MG CAPSULE SA 24HR PO SCH (09:00)
[2017-10-23] MEDS ORDERED: CLOPIDOGREL 75MG TABLET PO SCH (09:00)
[2017-10-23] MEDS ORDERED: ASPIRIN 81MG EC TABLET PO SCH (09:00)
[2017-10-23] MEDS ORDERED: MEDICATION NOT ON FORMULARY EA (Ambrisentan (Letairis) 5 MG) PO SCH (09:00)
[2017-10-23] MEDS ORDERED: FERROUS SULFATE 325MG TABLET PO SCH (09:00)
[2017-10-23] MEDS ORDERED: ALPRAZOLAM 0.25 MG TABLET PO SCH (09:00)
[2017-10-23] MEDS ORDERED: ALLOPURINOL 100 MG TABLET PO SCH (09:00)
[2017-10-23] MEDS: MINOXIDIL 2.5MG TABLET PO SCH (09:18)
[2017-10-23] MEDS ORDERED: ASPIRIN 325MG TABLET PO SCH (10:00)
== END 2017-10-23 15:29 | disposition home or self-care (01) | DRG 181 ==
LOC: CCL 06:10 → 3WST 06:11
PROVIDERS: ADMIT Specialist; ATTEND Specialist
PROC: 047H3DZ Dilation of Right External Iliac Artery with Intraluminal Device, Percutaneous Approach (ICD-10-PCS; 2017-10-22)
PROC: 047K3Z1 Dilation of Right Femoral Artery using Drug-Coated Balloon, Percutaneous Approach (ICD-10-PCS; 2017-10-22)
PROC: B41F1ZZ Fluoroscopy of Right Lower Extremity Arteries using Low Osmolar Contrast (ICD-10-PCS; 2017-10-22)
PROC: 04CK0ZZ Extirpation of Matter from Right Femoral Artery, Open Approach (ICD-10-PCS; principal; 2017-10-22 08:00)
DX: T82.856A Stenosis of peripheral vascular stent, initial encounter (principal); I27.20 Pulmonary hypertension, unspecified; I11.9 Hypertensive heart disease without heart failure; I25.10 Atherosclerotic heart disease of native coronary artery without angina pectoris; I48.2 Chronic atrial fibrillation; J44.9 Chronic obstructive pulmonary disease, unspecified; K21.9 Gastro-esophageal reflux disease without esophagitis; E78.5 Hyperlipidemia, unspecified; F41.9 Anxiety disorder, unspecified; I08.1 Rheumatic disorders of both mitral and tricuspid valves; I48.1 Persistent atrial fibrillation; N28.9 Disorder of kidney and ureter, unspecified; I73.9 Peripheral vascular disease, unspecified; Z82.49 Family history of ischemic heart disease and other diseases of the circulatory system; Z87.891 Personal history of nicotine dependence; Z79.02 Long term (current) use of antithrombotics/antiplatelets; Z99.81 Dependence on supplemental oxygen; Z79.899 Other long term (current) drug therapy; Y92.89 Other specified places as the place of occurrence of the external cause
CPT/HCPCS: 36415; 37221; 37225; 75710; 80048; 85025; 85347; 94640; C1725; C1760; C1769; C1876; C1885; C1887; C1893; C1894; J1644; J2250; J3010; J3490; J7611; Q9967

== ENCOUNTER 2018-09-15 10:11 | Inpatient (IN) | payer MEDICARE, OTHER ==
[~2018-09-15] VITALS: Ht 167.6 cm; Wt 81.4 kg
[~2018-09-15 10:11] MED LIST changes: +APIX2.5T MT; +ASCO-316 PO; +CLOP75TA16 PO; +DIPH25TA23 PO; -ELIQUIS PO; +HYDR-4001 MT; +IBUP-2030 MT; +OLME40TA18 MT; +P20 MT; +PROM5SYR MT; +TRIA10.82 BOTHNSTRLS
[2018-09-15 11:24] LABS: BASOPHILS % 0.8 % (0.0-2.0); EOSINOPHILS % 0.5 % (0.0-5.0); HEMOGLOBIN. 9.3 g/dL (12.0-16.0); LYMPHOCYTES % 17.5 % (20.0-50.0); MEAN CORPUSCULAR HEMOGLOBIN 21.1 pg (28.0-32.0); MEAN CORPUSCULAR VOLUME 70.2 fL (81.0-99.0); MEAN PLATELET VOLUME 9.4 fl (7.4-10.4); NEUTROPHILS % 76.2 % (40.0-76.0); PLATELET 264 x1000/uL (130-400); RED BLOOD CELL COUNT 4.42 mill/uL (4.2-5.4); RED CELL DISTRIBUTION WIDTH 20.7 % (11.6-14.6)
[2018-09-15 11:31] LABS: CHLORIDE 115 mEq/L (98-107)
[2018-09-15 11:35] LABS: INR 1.1; PARTIAL THROMBOPLASTIN TIME 39.3 sec (23.4-31.0); PROTHROMBIN TIME 11.4 sec (9.1-11.1)
[2018-09-15] MEDS ORDERED: ALBUTEROL (0.083%) 2.5MG/3ML NEB HHN STA (11:38)
[2018-09-15] MEDS ORDERED: IPRATROPIUM BROMIDE (0.02%) 0.5MG/2.5ML NEB HHN STA (11:38)
[2018-09-15] MEDS ORDERED: FUROSEMIDE 40MG/4ML VIAL IVP ONE (11:45)
[2018-09-15 12:03] LABS: DIGOXIN < 0.1 ng/mL (0.9-2.0)
[2018-09-15] MEDS ORDERED: HYDROCODONE/ACETAMINOPHEN 5/325MG TABLET PO PRN (12:45)
[2018-09-15] MEDS ORDERED: IPRATROPIUM/ALBUTEROL 0.5-3(2.5)MG/3ML NEB INH PRN (12:45)
[2018-09-15] MEDS ORDERED: ACETAMINOPHEN 325MG TABLET PO PRN (12:45)
[2018-09-15] MEDS ORDERED: NA PHOS,M-B/NA PHOS,DI-BA ENEMA 118ML PR PRN (12:45)
[2018-09-15] MEDS ORDERED: MAGNESIUM/ALUMINUM HYDROXIDE/SIMETHICONE 30ML UDC PO PRN (12:45)
[2018-09-15] MEDS ORDERED: GUAIFENESIN 200MG/10ML SUGAR FREE UDC PO PRN (12:45)
[2018-09-15] MEDS ORDERED: DIPHENHYDRAMINE 50MG/ML VIAL IV PRN (12:45)
[2018-09-15 12:50] LABS: CLARITY URINE CLEAR (CLEAR); COLOR URINE YELLOW (YELLOW); KETONES URINE NEGATIVE (NEGATIVE); LEUKOCYTE ESTERASE URINE NEGATIVE (NEGATIVE); NITRITE URINE NEGATIVE (NEGATIVE); OCCULT BLOOD URINE NEGATIVE (NEGATIVE); PH URINE 7.5 (4.5-8.0); PROTEIN URINE NEGATIVE (NEGATIVE); SPECIFIC GRAVITY URINE 1.006 (1.005-1.030); UROBILINOGEN URINE 0.2 E.U./dL (0.2-1.0)
[2018-09-15] MEDS: ENOXAPARIN 30MG/0.3ML SYR SUBCUT SCH (13:17)
[2018-09-15] MEDS ORDERED: NON FORMULARY PATIENT HOME MED XX SCH (16:15)
[2018-09-15] MEDS ORDERED: IPRATROPIUM BROMIDE (0.02%) 0.5MG/2.5ML NEB HHN SCH ×3 (16:30→16:45)
[2018-09-15] MEDS ORDERED: IPRATROPIUM/ALBUTEROL 0.5-3(2.5)MG/3ML NEB HHN SCH (18:00)
[2018-09-15] MEDS: LORAZEPAM 2MG/ML CPJ IV PRN (20:37)
[2018-09-15] MEDS: ONDANSETRON HCL 4MG/2ML INJ IV PRN (20:38)
[2018-09-15 22:00] VITALS: BP 159/96
[2018-09-15 22:30] VITALS: BP 159/96
[2018-09-15] MEDS: SILDENAFIL CITRATE 20MG TABLET PO SCH (22:34)
[2018-09-16] VITALS (18 sets, daily range): BP systolic 111–193; BP diastolic 60–107
[2018-09-16] MEDS ORDERED: APIX5TAB PO (00:03)
[2018-09-16] MEDS ORDERED: CLON0.2T PO (00:03)
[2018-09-16] MEDS ORDERED: FURO40TA5 PO (00:21)
[2018-09-16] MEDS ORDERED: DILT240C91 PO (00:31)
[2018-09-16] MEDS ORDERED: PANT40TA4 PO (00:31)
[2018-09-16] MEDS: SILDENAFIL CITRATE 20MG TABLET PO SCH ×3 (05:56→21:57)
[2018-09-16 06:26] LABS: BASOPHILS % 1.6 % (0.0-2.0); EOSINOPHILS % 3.1 % (0.0-5.0); HEMATOCRIT. 27.7 % (36.0-48.0); HEMOGLOBIN. 8.3 g/dL (12.0-16.0); LYMPHOCYTES % 24.9 % (20.0-50.0); MEAN CORPUSCULAR HEMOGLOBIN 20.8 pg (28.0-32.0); MEAN CORPUSCULAR VOLUME 69.6 fL (81.0-99.0); MEAN PLATELET VOLUME 9.4 fl (7.4-10.4); MONOCYTES % 9.7 % (2.0-8.0); NEUTROPHILS % 60.7 % (40.0-76.0); PLATELET 254 x1000/uL (130-400); RED BLOOD CELL COUNT 3.98 mill/uL (4.2-5.4); RED CELL DISTRIBUTION WIDTH 20.7 % (11.6-14.6)
[2018-09-16 06:27] LABS: CHLORIDE 113 mEq/L (98-107)
[2018-09-16 06:40] LABS: T4 FREE 1.32 ng/dL (0.76-1.46)
[2018-09-16] MEDS: ENOXAPARIN 30MG/0.3ML SYR SUBCUT SCH (08:36)
[2018-09-16] MEDS: ASPIRIN 81MG EC TABLET PO SCH (08:37)
[2018-09-16] MEDS: FUROSEMIDE 40MG/4ML VIAL IV SCH (08:37)
[2018-09-16 13:20] LABS: PLATELET ESTIMATE NORMAL
[2018-09-16] MEDS: DILTIAZEM HCL 60MG TABLET PO SCH ×3 (13:40→23:03)
[2018-09-16] MEDS: CLONIDINE 0.1MG TABLET PO PRN ×2 (16:28→21:58)
[2018-09-16] MEDS: LETAIRIS 5 MG PO SCH (16:28)
[2018-09-16] MEDS: LORAZEPAM 2MG/ML CPJ IV PRN (23:03)
[2018-09-17] VITALS (13 sets, daily range): BP systolic 108–178; BP diastolic 49–100
[2018-09-17] MEDS: DILTIAZEM HCL 60MG TABLET PO SCH ×4 (05:35→23:09)
[2018-09-17] MEDS: SILDENAFIL CITRATE 20MG TABLET PO SCH ×3 (05:36→21:21)
[2018-09-17] MEDS: IPRATROPIUM BROMIDE (0.02%) 0.5MG/2.5ML NEB HHN SCH ×2 (07:30→20:42)
[2018-09-17] MEDS: FUROSEMIDE 40MG/4ML VIAL IV SCH (08:30)
[2018-09-17] MEDS: LETAIRIS 5 MG PO SCH (08:33)
[2018-09-17] MEDS: ASPIRIN 81MG EC TABLET PO SCH (08:33)
[2018-09-17 09:03] LABS: EOSINOPHILS % 4.6 % (0.0-5.0); HEMATOCRIT. 29.3 % (36.0-48.0); HEMOGLOBIN. 8.8 g/dL (12.0-16.0); LYMPHOCYTES % 24.4 % (20.0-50.0); MEAN CORPUSCULAR HEMOGLOBIN 21.2 pg (28.0-32.0); MEAN CORPUSCULAR VOLUME 70.2 fL (81.0-99.0); MONOCYTES % 7.5 % (2.0-8.0); NEUTROPHILS % 62.5 % (40.0-76.0); PLATELET 273 x1000/uL (130-400); RED BLOOD CELL COUNT 4.17 mill/uL (4.2-5.4); RED CELL DISTRIBUTION WIDTH 20.6 % (11.6-14.6)
[2018-09-17] MEDS ORDERED: LIDOCAINE HCL 1% 20ML VIAL (Pyxis) INJ ONE ×2 (09:31→10:12)
[2018-09-17] MEDS ORDERED: IODIXANOL 320MG/ML 100 ML BOTTLE IV ONE (09:31)
[2018-09-17] MEDS ORDERED: FENTANYL CITRATE/PF 50MCG/ML 2ML VIAL ONE (09:39)
[2018-09-17] MEDS ORDERED: MIDAZOLAM HCL 2 MG/2 ML VIAL ONE (09:39)
[2018-09-17] MEDS ORDERED: ATROPINE SULFATE 1MG/10ML SYR IV PRN (10:30)
[2018-09-17] MEDS ORDERED: ACETAMINOPHEN 325MG TABLET PO PRN (10:30)
[2018-09-17] MEDS ORDERED: HYDRALAZINE 20MG/ML VIAL ONE (10:31)
[2018-09-17] MEDS ORDERED: NITROGLYCERIN 50MCG/ML 10ML VIAL (CATH LAB) IV ONE (12:00)
[2018-09-17] MEDS: MORPHINE SULFATE 4 MG/ML CPJ (NOT FOR IM USE) IV PRN (12:33)
[2018-09-17] MEDS: CLONIDINE 0.1MG TABLET PO PRN (15:01)
[2018-09-17] MEDS: APIXABAN 5 MG TABLET PO SCH (17:14)
[2018-09-17] MEDS: DOCUSATE SODIUM 100MG CAPSULE PO PRN (17:14)
[2018-09-17] MEDS: ATORVASTATIN CALCIUM 40MG TABLET PO SCH (21:21)
[2018-09-17] MEDS: LORAZEPAM 2MG/ML CPJ IV PRN (23:07)
[2018-09-18] VITALS (15 sets, daily range): BP systolic 94–163; BP diastolic 45–94
[2018-09-18] MEDS: IPRATROPIUM BROMIDE (0.02%) 0.5MG/2.5ML NEB HHN SCH ×4 (01:01→20:37)
[2018-09-18] MEDS: CLONIDINE 0.1MG TABLET PO PRN (01:58)
[2018-09-18] MEDS: SILDENAFIL CITRATE 20MG TABLET PO SCH ×3 (06:17→21:08)
[2018-09-18] MEDS: DILTIAZEM HCL 60MG TABLET PO SCH ×4 (06:17→23:17)
[2018-09-18] MEDS: APIXABAN 5 MG TABLET PO SCH ×2 (08:11→17:17)
[2018-09-18] MEDS: ASPIRIN 81MG EC TABLET PO SCH (08:11)
[2018-09-18] MEDS: FUROSEMIDE 40MG/4ML VIAL IV SCH (08:11)
[2018-09-18] MEDS: DOCUSATE SODIUM 100MG CAPSULE PO PRN (08:11)
[2018-09-18] MEDS: LETAIRIS 5 MG PO SCH (08:12)
[2018-09-18 09:11] LABS: EOSINOPHILS % 3.6 % (0.0-5.0); HEMOGLOBIN. 9.4 g/dL (12.0-16.0); LYMPHOCYTES % 20.8 % (20.0-50.0); MEAN CORPUSCULAR HEMOGLOBIN 21.3 pg (28.0-32.0); MEAN CORPUSCULAR VOLUME 70.4 fL (81.0-99.0); MEAN PLATELET VOLUME 9.2 fl (7.4-10.4); NEUTROPHILS % 68.6 % (40.0-76.0); PLATELET 287 x1000/uL (130-400); RED CELL DISTRIBUTION WIDTH 21.1 % (11.6-14.6)
[2018-09-18] MEDS ORDERED: LACTULOSE 20G/30ML UDC PO NR (15:00)
[2018-09-18] MEDS: ATORVASTATIN CALCIUM 40MG TABLET PO SCH (21:08)
[2018-09-18] MEDS: LORAZEPAM 2MG/ML CPJ IV PRN (23:17)
[2018-09-19] VITALS (12 sets, daily range): BP systolic 110–171; BP diastolic 57–93
[2018-09-19] MEDS: CLONIDINE 0.1MG TABLET PO PRN (01:19)
[2018-09-19] MEDS: IPRATROPIUM BROMIDE (0.02%) 0.5MG/2.5ML NEB HHN SCH ×4 (01:41→20:32)
[2018-09-19] MEDS: LORAZEPAM 2MG/ML CPJ IV PRN (04:50)
[2018-09-19] MEDS: SILDENAFIL CITRATE 20MG TABLET PO SCH ×3 (05:00→21:17)
[2018-09-19] MEDS: DILTIAZEM HCL 60MG TABLET PO SCH (05:01)
[2018-09-19 08:02] LABS: HEMATOCRIT 31.7 % (36.0-48.0); HEMOGLOBIN 9.5 g/dL (12.0-16.0); MEAN CORPUSCULAR HEMOGLOBIN 20.8 pg (28.0-32.0); MEAN CORPUSCULAR VOLUME 68.9 fL (81.0-99.0); PLATELET 281 x1000/uL (130-400); RED BLOOD CELL COUNT 4.59 mill/uL (4.2-5.4); RED CELL DISTRIBUTION WIDTH 20.3 % (11.6-14.6)
[2018-09-19] MEDS: MORPHINE SULFATE 4 MG/ML CPJ (NOT FOR IM USE) IV PRN (08:08)
[2018-09-19] MEDS: APIXABAN 5 MG TABLET PO SCH ×2 (09:57→17:03)
[2018-09-19] MEDS: FUROSEMIDE 40MG/4ML VIAL IV SCH (09:57)
[2018-09-19] MEDS: LETAIRIS 5 MG PO SCH (09:57)
[2018-09-19] MEDS: ASPIRIN 81MG EC TABLET PO SCH (09:57)
[2018-09-19] MEDS ORDERED: KETOROLAC 30MG/ML VIAL IV PRN (11:15)
[2018-09-19] MEDS: DOCUSATE SODIUM 100MG CAPSULE PO PRN (11:54)
[2018-09-19] MEDS: DILTIAZEM HCL 90MG TABLET PO SCH ×3 (12:00→23:53)
[2018-09-19] MEDS: ONDANSETRON HCL 4MG/2ML INJ IV PRN (12:17)
[2018-09-19] MEDS: ATORVASTATIN CALCIUM 40MG TABLET PO SCH (21:17)
[2018-09-20] VITALS (7 sets, daily range): BP systolic 107–137; BP diastolic 48–79
[2018-09-20] MEDS: IPRATROPIUM BROMIDE (0.02%) 0.5MG/2.5ML NEB HHN SCH ×2 (01:51→08:52)
[2018-09-20] MEDS: DILTIAZEM HCL 90MG TABLET PO SCH ×2 (06:36→11:26)
[2018-09-20] MEDS: SILDENAFIL CITRATE 20MG TABLET PO SCH ×2 (06:36→11:26)
[2018-09-20] MEDS ORDERED: LACTULOSE 20G/30ML UDC PO NR (09:00)
[2018-09-20] MEDS: APIXABAN 5 MG TABLET PO SCH (09:08)
[2018-09-20] MEDS: ASPIRIN 81MG EC TABLET PO SCH (09:08)
[2018-09-20] MEDS: LETAIRIS 5 MG PO SCH (09:08)
[2018-09-20] MEDS: FUROSEMIDE 40MG/4ML VIAL IV SCH (09:08)
== END 2018-09-20 12:00 | disposition home or self-care (01) | DRG 192 ==
LOC: ER 10:11 → EDBEDREQ 10:46 → 5EST 12:22 → EDBEDREQTM 12:24 → EDBEDREQ 12:24 → ENRESERV 20:48 → 5EST 09-16 01:20 → 3WST 09-17 11:15
PROVIDERS: ADMIT Internal Medicine; ATTEND Internal Medicine
PROC: 4A023N7 Measurement of Cardiac Sampling and Pressure, Left Heart, Percutaneous Approach (ICD-10-PCS; principal; 2018-09-17)
PROC: B2111ZZ Fluoroscopy of Multiple Coronary Arteries using Low Osmolar Contrast (ICD-10-PCS; 2018-09-17)
DX: I13.0 Hypertensive heart and chronic kidney disease with heart failure and stage 1 through stage 4 chronic kidney disease, or unspecified chronic kidney disease (principal); J96.20 Acute and chronic respiratory failure, unspecified whether with hypoxia or hypercapnia; I21.4 Non-ST elevation (NSTEMI) myocardial infarction; D64.9 Anemia, unspecified; E11.22 Type 2 diabetes mellitus with diabetic chronic kidney disease; I27.20 Pulmonary hypertension, unspecified; I48.2 Chronic atrial fibrillation; E11.51 Type 2 diabetes mellitus with diabetic peripheral angiopathy without gangrene; E46 Unspecified protein-calorie malnutrition; E78.5 Hyperlipidemia, unspecified; G47.00 Insomnia, unspecified; I25.10 Atherosclerotic heart disease of native coronary artery without angina pectoris; J44.9 Chronic obstructive pulmonary disease, unspecified; K21.9 Gastro-esophageal reflux disease without esophagitis; K59.00 Constipation, unspecified; E78.00 Pure hypercholesterolemia, unspecified; M10.9 Gout, unspecified; I50.33 Acute on chronic diastolic (congestive) heart failure; F41.9 Anxiety disorder, unspecified; N18.9 Chronic kidney disease, unspecified; Z82.49 Family history of ischemic heart disease and other diseases of the circulatory system; Z87.891 Personal history of nicotine dependence; Z88.8 Allergy status to other drugs, medicaments and biological substances; Z88.0 Allergy status to penicillin; Z79.899 Other long term (current) drug therapy; Z79.82 Long term (current) use of aspirin; Z68.29 Body mass index [BMI] 29.0-29.9, adult
CPT/HCPCS: 36415; 71045; 71250; 74018; 76857; 78582; 80048; 80162; 83735; 83880; 84439; 84443; 84484; 85027; 85379; 93005; 93458; 93970; 94640; 96372; 96374; 96375; 99291; A9558; C1760; C1769; C1887; C1893; J0360; J1644; J1650; J1885; J1940; J2060; J2250; J2270; J2405; J3010; J3490; J7611; Q9967

== ENCOUNTER 2019-05-09 10:24 | Inpatient (IN) | payer MEDICARE, MEDICAID ==
[~2019-05-09] VITALS: Ht 167.6 cm; Wt 77.6 kg
[~2019-05-09 10:24] MED LIST changes: -ALPR-392 PO; -APIX2.5T MT; +APIX5TAB PO; -CLON0.1T PO; +CLON0.2T PO; -CLOP75TA16 PO; +DILT240C91 PO; -DIPH25TA23 PO; -ESOM40CA PO; -FERR325T6 PO; +FURO40TA5 PO; -FURO80TA3 PO; -IBUP-2030 MT; -MINO2.5T19 PO; -P20 MT; +PANT40TA4 PO; -PROM5SYR MT; -TRIA10.82 BOTHNSTRLS
[2019-05-09] MEDS ORDERED: OXYMETAZOLINE HCL NASAL SPRAY 15ML BOTHNSTRLS SCH (11:30)
[2019-05-09] MEDS ORDERED: PHENYLEPHRINE HCL 0.5% 15ML NASAL SPRAY BOTHNSTRLS SCH (11:45)
[2019-05-09 12:26] LABS: BASOPHILS % 1.1 % (0.0-2.0); EOSINOPHILS % 2.8 % (0.0-5.0); HEMATOCRIT. 43.3 % (36.0-48.0); HEMOGLOBIN. 13.5 g/dL (12.0-16.0); MEAN CORPUSCULAR HEMOGLOBIN 25.2 pg (28.0-32.0); MEAN CORPUSCULAR VOLUME 80.6 fL (81.0-99.0); MEAN PLATELET VOLUME 8.7 fl (7.4-10.4); MONOCYTES % 6.3 % (2.0-8.0); NEUTROPHILS % 64.8 % (40.0-76.0); PLATELET 156 x1000/uL (130-400); RED BLOOD CELL COUNT 5.37 mill/uL (4.2-5.4); RED CELL DISTRIBUTION WIDTH 24.4 % (11.6-14.6)
[2019-05-09 12:33] LABS: CHLORIDE 112 mEq/L (98-107)
[2019-05-09 12:43] LABS: INR 1.1; PARTIAL THROMBOPLASTIN TIME 35.9 sec (23.4-31.0); PROTHROMBIN TIME 11.8 sec (9.6-11.0)
[2019-05-09 13:25] LABS: PLATELET ESTIMATE NORMAL
[2019-05-09] MEDS ORDERED: DOCUSATE SODIUM 100MG CAPSULE PO PRN (17:30)
[2019-05-09] MEDS ORDERED: MAGNESIUM/ALUMINUM HYDROXIDE/SIMETHICONE 30ML UDC PO PRN (17:30)
[2019-05-09] MEDS ORDERED: IPRATROPIUM/ALBUTEROL 0.5-3(2.5)MG/3ML NEB NEB PRN (17:30)
[2019-05-09] MEDS ORDERED: ONDANSETRON HCL 4MG/2ML INJ IV PRN (17:30)
[2019-05-09] MEDS: ACETAMINOPHEN 325MG TABLET PO PRN ×2 (17:37→23:13)
[2019-05-09] MEDS: FUROSEMIDE 40MG/4ML VIAL IV SCH (17:37)
[2019-05-09 19:26] VITALS: BP 161/105
[2019-05-09 20:51] VITALS: BP 161/105
[2019-05-09 23:52] LABS: BASOPHILS % 0.7 % (0.0-2.0); EOSINOPHILS % 3.5 % (0.0-5.0); HEMATOCRIT. 40.7 % (36.0-48.0); HEMOGLOBIN. 12.9 g/dL (12.0-16.0); LYMPHOCYTES % 23.7 % (20.0-50.0); MEAN CORPUSCULAR HEMOGLOBIN 25.1 pg (28.0-32.0); MEAN CORPUSCULAR VOLUME 79.4 fL (81.0-99.0); MEAN PLATELET VOLUME 9.4 fl (7.4-10.4); MONOCYTES % 7.7 % (2.0-8.0); NEUTROPHILS % 64.4 % (40.0-76.0); PLATELET 143 x1000/uL (130-400); RED BLOOD CELL COUNT 5.13 mill/uL (4.2-5.4); RED CELL DISTRIBUTION WIDTH 24.8 % (11.6-14.6)
[2019-05-10] VITALS (7 sets, daily range): BP systolic 145–195; BP diastolic 70–108
[2019-05-10 00:05] LABS: CREATINE KINASE MB FRACTION 1.8 ng/mL (0.5-3.6)
[2019-05-10] MEDS: CLONIDINE 0.1MG TABLET PO PRN ×3 (00:31→17:23)
[2019-05-10 03:43] LABS: *AMPHETAMINES SCREEN URINE NEGATIVE (NEGATIVE); *BARBITURATES SCREEN URINE NEGATIVE (NEGATIVE); *BENZODIAZEPINES SCREEN URINE NEGATIVE (NEGATIVE); *COCAINE SCREEN URINE NEGATIVE (NEGATIVE); METHADONE URINE SCREEN NEGATIVE (NEGATIVE)
[2019-05-10 03:44] LABS: CANNABINOID URINE SCREEN NEGATIVE (NEGATIVE); OPIATES URINE SCREEN NEGATIVE (NEGATIVE); PHENCYCLIDINE URINE SCREEN NEGATIVE (NEGATIVE)
[2019-05-10 04:23] LABS: CLARITY URINE CLEAR (CLEAR); COLOR URINE YELLOW (YELLOW); KETONES URINE NEGATIVE (NEGATIVE); LEUKOCYTE ESTERASE URINE TRACE (NEGATIVE); NITRITE URINE NEGATIVE (NEGATIVE); OCCULT BLOOD URINE NEGATIVE (NEGATIVE); PH URINE 5.5 (4.5-8.0); PROTEIN URINE NEGATIVE (NEGATIVE); SPECIFIC GRAVITY URINE 1.011 (1.005-1.030)
[2019-05-10] MEDS: ACETAMINOPHEN 325MG TABLET PO PRN ×2 (05:37→20:37)
[2019-05-10 07:37] LABS: BASOPHILS % 1.1 % (0.0-2.0); EOSINOPHILS % 4.2 % (0.0-5.0); HEMATOCRIT. 40.6 % (36.0-48.0); HEMOGLOBIN. 13.1 g/dL (12.0-16.0); LYMPHOCYTES % 31.9 % (20.0-50.0); MEAN CORPUSCULAR HEMOGLOBIN 25.2 pg (28.0-32.0); MEAN CORPUSCULAR VOLUME 78.5 fL (81.0-99.0); MEAN PLATELET VOLUME 9.4 fl (7.4-10.4); MONOCYTES % 11.3 % (2.0-8.0); NEUTROPHILS % 51.5 % (40.0-76.0); PLATELET 153 x1000/uL (130-400); RED BLOOD CELL COUNT 5.18 mill/uL (4.2-5.4); RED CELL DISTRIBUTION WIDTH 24.3 % (11.6-14.6)
[2019-05-10 08:36] LABS: CREATINE KINASE MB FRACTION 1.7 ng/mL (0.5-3.6)
[2019-05-10] MEDS: FUROSEMIDE 40MG/4ML VIAL IV SCH (09:27)
[2019-05-10] MEDS ORDERED: HYDRALAZINE 20MG/ML VIAL IV NR (10:00)
[2019-05-10] MEDS ORDERED: MORPHINE SULFATE 2 MG/ML CPJ (NOT FOR IM USE) IV PRN (10:00)
[2019-05-10] MEDS ORDERED: PANTOPRAZOLE 40MG DR TABLET PO NR (10:45)
[2019-05-10] MEDS ORDERED: MAGNESIUM/ALUMINUM HYDROXIDE/SIMETHICONE 30ML UDC PO NR (10:45)
[2019-05-10] MEDS: DILTIAZEM HCL 60MG TABLET PO SCH ×3 (12:38→23:42)
[2019-05-10] MEDS ORDERED: MAGNESIUM/ALUMINUM HYDROXIDE/SIMETHICONE 30ML UDC PO PRN (15:00)
[2019-05-10] MEDS: ATORVASTATIN CALCIUM 20MG TABLET PO SCH (20:37)
[2019-05-10] MEDS: CLONIDINE 0.1MG TABLET PO SCH (20:38)
[2019-05-10] MEDS: ZOLPIDEM TARTRATE 5MG TABLET PO PRN (23:41)
[2019-05-11] VITALS (7 sets, daily range): BP systolic 144–201; BP diastolic 69–92
[2019-05-11] MEDS: PANTOPRAZOLE 40MG DR TABLET PO SCH (05:45)
[2019-05-11] MEDS: DILTIAZEM HCL 60MG TABLET PO SCH ×4 (05:46→23:48)
[2019-05-11 06:57] LABS: BASOPHILS % 1.3 % (0.0-2.0); EOSINOPHILS % 3.6 % (0.0-5.0); HEMATOCRIT. 41.7 % (36.0-48.0); HEMOGLOBIN. 13.4 g/dL (12.0-16.0); LYMPHOCYTES % 22.5 % (20.0-50.0); MEAN CORPUSCULAR HEMOGLOBIN 25.2 pg (28.0-32.0); MEAN CORPUSCULAR VOLUME 78.6 fL (81.0-99.0); MEAN PLATELET VOLUME 9.1 fl (7.4-10.4); NEUTROPHILS % 62.6 % (40.0-76.0); PLATELET 145 x1000/uL (130-400); RED CELL DISTRIBUTION WIDTH 23.7 % (11.6-14.6)
[2019-05-11] MEDS: CLONIDINE 0.1MG TABLET PO SCH ×2 (08:52→20:52)
[2019-05-11] MEDS: FUROSEMIDE 40MG/4ML VIAL IV SCH (08:53)
[2019-05-11] MEDS: HYDROCODONE/ACETAMINOPHEN 5/325MG TABLET PO PRN (11:22)
[2019-05-11] MEDS: CLONIDINE 0.1MG TABLET PO PRN (16:53)
[2019-05-11] MEDS: ATORVASTATIN CALCIUM 20MG TABLET PO SCH (20:50)
[2019-05-11] MEDS: ZOLPIDEM TARTRATE 5MG TABLET PO PRN (23:48)
[2019-05-12] VITALS (7 sets, daily range): BP systolic 146–175; BP diastolic 67–104
[2019-05-12] MEDS: PANTOPRAZOLE 40MG DR TABLET PO SCH (06:15)
[2019-05-12] MEDS: DILTIAZEM HCL 60MG TABLET PO SCH ×3 (06:15→17:34)
[2019-05-12 07:50] LABS: BASOPHILS % 0.9 % (0.0-2.0); EOSINOPHILS % 2.4 % (0.0-5.0); HEMATOCRIT. 42.9 % (36.0-48.0); HEMOGLOBIN. 13.8 g/dL (12.0-16.0); LYMPHOCYTES % 22.9 % (20.0-50.0); MEAN CORPUSCULAR HEMOGLOBIN 25.5 pg (28.0-32.0); MEAN CORPUSCULAR VOLUME 79.1 fL (81.0-99.0); MEAN PLATELET VOLUME 9.1 fl (7.4-10.4); MONOCYTES % 11.2 % (2.0-8.0); NEUTROPHILS % 62.6 % (40.0-76.0); PLATELET 148 x1000/uL (130-400); RED BLOOD CELL COUNT 5.42 mill/uL (4.2-5.4); RED CELL DISTRIBUTION WIDTH 23.6 % (11.6-14.6)
[2019-05-12] MEDS: FUROSEMIDE 40MG/4ML VIAL IV SCH (09:11)
[2019-05-12] MEDS: CLONIDINE 0.1MG TABLET PO SCH ×2 (09:11→21:10)
[2019-05-12] MEDS: HYDROCODONE/ACETAMINOPHEN 5/325MG TABLET PO PRN (09:18)
[2019-05-12] MEDS: CLONIDINE 0.1MG TABLET PO PRN (10:12)
[2019-05-12] MEDS: ATORVASTATIN CALCIUM 20MG TABLET PO SCH (21:10)
[2019-05-12] MEDS: ZOLPIDEM TARTRATE 5MG TABLET PO PRN (23:33)
[2019-05-13] VITALS: BP 229/122
[2019-05-13] MEDS: DILTIAZEM HCL 60MG TABLET PO SCH ×2 (00:16→06:00)
[2019-05-13] MEDS: CLONIDINE 0.1MG TABLET PO PRN ×2 (00:17→06:26)
[2019-05-13 01:30] VITALS: BP 151/78
[2019-05-13 06:00] VITALS: BP 191/99
[2019-05-13] MEDS: PANTOPRAZOLE 40MG DR TABLET PO SCH (06:26)
[2019-05-13 08:00] VITALS: BP 178/84
[2019-05-13] MEDS: CLONIDINE 0.1MG TABLET PO SCH (08:32)
[2019-05-13] MEDS ORDERED: FUROSEMIDE 40MG TABLET PO SCH (09:00)
[2019-05-13 09:50] VITALS: BP 156/86
== END 2019-05-13 11:29 | disposition home or self-care (01) | DRG 194 ==
LOC: ER 10:24 → 5WST 16:22 → ENRESERV 18:50
PROVIDERS: ADMIT Internal Medicine; ATTEND Internal Medicine
DX: I11.0 Hypertensive heart disease with heart failure (principal); E87.8 Other disorders of electrolyte and fluid balance, not elsewhere classified; I27.20 Pulmonary hypertension, unspecified; I48.19 Other persistent atrial fibrillation; E44.1 Mild protein-calorie malnutrition; I50.33 Acute on chronic diastolic (congestive) heart failure; E78.5 Hyperlipidemia, unspecified; I25.10 Atherosclerotic heart disease of native coronary artery without angina pectoris; I25.2 Old myocardial infarction; J44.9 Chronic obstructive pulmonary disease, unspecified; K21.9 Gastro-esophageal reflux disease without esophagitis; R04.0 Epistaxis; Z79.01 Long term (current) use of anticoagulants; E78.00 Pure hypercholesterolemia, unspecified; Z79.899 Other long term (current) drug therapy; Z82.49 Family history of ischemic heart disease and other diseases of the circulatory system; Z87.891 Personal history of nicotine dependence; Z82.3 Family history of stroke; Z88.0 Allergy status to penicillin
CPT/HCPCS: 36415; 71045; 80048; 80061; 80305; 81003; 82550; 82553; 83735; 83880; 84443; 84484; 86850; 86900; 93005; 93970; 96374; 97162; 99285; J0360; J1940; J2270

== ENCOUNTER 2021-10-08 21:04 | Inpatient (IN) | payer MEDICARE, OTHER ==
[~2021-10-08] VITALS: Ht 167.6 cm; Wt 85.8 kg
[~2021-10-08 21:04] MED LIST changes: -APIX5TAB PO; -ASPI-1073 PO; -DIGO-26 PO; -DILT360C27 PO; -PANT40TA4 PO; +PANT40TA51 PO
[2021-10-08] MEDS ORDERED: ONDANSETRON HCL 4MG/2ML INJ IV STA (22:09)
[2021-10-08] MEDS ORDERED: MORPHINE SULFATE 4 MG/ML CPJ (NOT FOR IM USE) IV STA (22:09)
[2021-10-08 23:18] LABS: BASOPHILS % 0.8 % (0.0-2.0); EOSINOPHILS % 2.4 % (0.0-5.0); HEMATOCRIT. 34.9 % (36.0-48.0); HEMOGLOBIN. 11.3 g/dL (12.0-16.0); LYMPHOCYTES % 19.8 % (20.0-50.0); MEAN CORPUSCULAR VOLUME 80.6 fL (81.0-99.0); MEAN PLATELET VOLUME 9.3 fl (7.4-10.4); MONOCYTES % 8.3 % (2.0-8.0); NEUTROPHILS % 68.7 % (40.0-76.0); PLATELET 185 x1000/uL (130-400); RED BLOOD CELL COUNT 4.32 mill/uL (4.2-5.4); RED CELL DISTRIBUTION WIDTH 18.5 % (11.6-14.6)
[2021-10-08 23:25] LABS: CHLORIDE 115 mEq/L (98-107)
[2021-10-09] MEDS ORDERED: CLINDAMYCIN 600 MG in DEXTROSE 5% WATER 50 ML IV ONE (00:15)
[2021-10-09] MEDS ORDERED: CLINDAMYCIN 600MG PREMIX 50 ML IV SCH (01:00)
[2021-10-09] MEDS ORDERED: MAGNESIUM/ALUMINUM HYDROXIDE/SIMETHICONE 30ML UDC PO PRN (02:45)
[2021-10-09] MEDS ORDERED: ACETAMINOPHEN 325MG TABLET PO PRN ×2 (02:45)
[2021-10-09] MEDS ORDERED: ONDANSETRON HCL 4MG/2ML INJ IV PRN (02:45)
[2021-10-09] MEDS ORDERED: DOCUSATE SODIUM 100MG CAPSULE PO PRN (02:45)
[2021-10-09] MEDS ORDERED: ACETAMINOPHEN 650MG SUPP PR PRN ×2 (02:45)
[2021-10-09] MEDS ORDERED: GUAIFENESIN 200MG/10ML SUGAR FREE UDC PO PRN (02:45)
[2021-10-09] MEDS ORDERED: IPRATROPIUM/ALBUTEROL 0.5-3(2.5)MG/3ML NEB HHN PRN (02:45)
[2021-10-09] MEDS ORDERED: NALOXONE HCL 0.4 MG/ML 1ML VIAL IV PRN (03:15)
[2021-10-09] MEDS: CLONIDINE 0.1MG TABLET PO PRN ×3 (05:00→21:13)
[2021-10-09 08:00] VITALS: BP 187/93
[2021-10-09] MEDS ORDERED: ENOXAPARIN 40MG/0.4ML SYR SUBCUT SCH (09:00)
[2021-10-09] MEDS ORDERED: ENOXAPARIN 30MG/0.3ML SYR SUBCUT SCH (09:00)
[2021-10-09] MEDS: MORPHINE SULFATE 2 MG/ML CPJ (NOT FOR IM USE) IV PRN ×2 (09:26→18:56)
[2021-10-09] MEDS ORDERED: APIX2.5T PO (10:17)
[2021-10-09 10:43] LABS: EOSINOPHILS % 4.1 % (0.0-5.0); HEMATOCRIT. 33.9 % (36.0-48.0); LYMPHOCYTES % 18.9 % (20.0-50.0); MEAN CORPUSCULAR HEMOGLOBIN 26.4 pg (28.0-32.0); MEAN PLATELET VOLUME 9.3 fl (7.4-10.4); MONOCYTES % 7.9 % (2.0-8.0); NEUTROPHILS % 68.1 % (40.0-76.0); PLATELET 175 x1000/uL (130-400); RED BLOOD CELL COUNT 4.18 mill/uL (4.2-5.4); RED CELL DISTRIBUTION WIDTH 18.4 % (11.6-14.6)
[2021-10-09] MEDS ORDERED: ENOXAPARIN 60MG/0.6ML SYR SUBCUT SCH (11:00)
[2021-10-09] MEDS ORDERED: AMLODIPINE 5MG TABLET PO SCH (11:00)
[2021-10-09] MEDS: METOPROLOL TARTRATE 25MG TABLET PO SCH ×2 (11:58→21:13)
[2021-10-09 12:00] VITALS: BP 177/73
[2021-10-09 12:24] LABS: CHLORIDE 113 mEq/L (98-107)
[2021-10-09 12:34] LABS: LDL CHOLESTEROL 71 mg/dL (5-100)
[2021-10-09 12:36] LABS: CREATINE KINASE 75 IU/L (26-192); HDL CHOLESTEROL 52 mg/dL (40-59)
[2021-10-09] MEDS: BENAZEPRIL 10MG TABLET PO SCH ×2 (14:13→18:55)
[2021-10-09] MEDS ORDERED: FUROSEMIDE 40MG TABLET PO SCH (15:45)
[2021-10-09 16:00] VITALS: BP 161/78
[2021-10-09 16:51] LABS: CLARITY URINE CLEAR (CLEAR); COLOR URINE YELLOW (YELLOW); KETONES URINE NEGATIVE (NEGATIVE); LEUKOCYTE ESTERASE URINE NEGATIVE (NEGATIVE); NITRITE URINE NEGATIVE (NEGATIVE); OCCULT BLOOD URINE NEGATIVE (NEGATIVE); PH URINE 6.5 (4.5-8.0); PROTEIN URINE 1+ (NEGATIVE); SPECIFIC GRAVITY URINE 1.017 (1.005-1.030)
[2021-10-09] MEDS: DILTIAZEM HCL 60MG TABLET PO SCH (18:55)
[2021-10-09 20:00] VITALS: BP 166/73
[2021-10-09] MEDS ORDERED: ATORVASTATIN CALCIUM 20MG TABLET PO SCH (21:00)
[2021-10-10] VITALS: BP 158/67
[2021-10-10] MEDS: DILTIAZEM HCL 60MG TABLET PO SCH ×2 (00:53→05:14)
[2021-10-10] MEDS: CLINDAMYCIN 300 MG in DEXTROSE 5% WATER 50 ML IV SCH ×2 (03:09→10:04)
[2021-10-10 04:00] VITALS: BP 162/85
[2021-10-10] MEDS: CLONIDINE 0.1MG TABLET PO PRN (05:14)
[2021-10-10 07:45] LABS: BASOPHILS % 0.6 % (0.0-2.0); EOSINOPHILS % 4.3 % (0.0-5.0); HEMATOCRIT. 34.2 % (36.0-48.0); HEMOGLOBIN. 10.8 g/dL (12.0-16.0); LYMPHOCYTES % 19.3 % (20.0-50.0); MEAN CORPUSCULAR HEMOGLOBIN 25.5 pg (28.0-32.0); MEAN CORPUSCULAR VOLUME 81.1 fL (81.0-99.0); MEAN PLATELET VOLUME 9.5 fl (7.4-10.4); MONOCYTES % 9.8 % (2.0-8.0); PLATELET 183 x1000/uL (130-400); RED BLOOD CELL COUNT 4.22 mill/uL (4.2-5.4); RED CELL DISTRIBUTION WIDTH 18.8 % (11.6-14.6)
[2021-10-10 08:00] VITALS: BP 136/76
[2021-10-10] MEDS ORDERED: AMLODIPINE 5MG TABLET PO SCH (09:00)
[2021-10-10] MEDS ORDERED: METOPROLOL TARTRATE 25MG TABLET PO SCH (09:00)
[2021-10-10] MEDS ORDERED: ENOXAPARIN 80MG/0.8ML SYR SUBCUT SCH (09:00)
[2021-10-10] MEDS: MORPHINE SULFATE 2 MG/ML CPJ (NOT FOR IM USE) IV PRN ×2 (10:12→16:16)
[2021-10-10 12:00] VITALS: BP 169/76
[2021-10-10 16:00] VITALS: BP 126/50
[2021-10-10 16:53] VITALS: BP 158/83
== END 2021-10-10 18:16 | disposition short-term general hospital (02) | DRG 383 ==
LOC: ER 21:04 → MICUSO 10-09 02:16 → 8WST 10-09 05:30 → 6WST 10-09 07:57
PROVIDERS: ADMIT Family Medicine Adult Medicine; ATTEND Family Medicine Adult Medicine
DX: L03.115 Cellulitis of right lower limb (principal); N17.0 Acute kidney failure with tubular necrosis; J96.10 Chronic respiratory failure, unspecified whether with hypoxia or hypercapnia; E44.1 Mild protein-calorie malnutrition; I50.9 Heart failure, unspecified; I48.20 Chronic atrial fibrillation, unspecified; I13.0 Hypertensive heart and chronic kidney disease with heart failure and stage 1 through stage 4 chronic kidney disease, or unspecified chronic kidney disease; D64.9 Anemia, unspecified; S80.11XA Contusion of right lower leg, initial encounter; N18.30 Chronic kidney disease, stage 3 unspecified; I16.0 Hypertensive urgency; J44.1 Chronic obstructive pulmonary disease with (acute) exacerbation; I07.1 Rheumatic tricuspid insufficiency; X58.XXXA Exposure to other specified factors, initial encounter; E78.5 Hyperlipidemia, unspecified; I25.10 Atherosclerotic heart disease of native coronary artery without angina pectoris; I73.9 Peripheral vascular disease, unspecified; M10.9 Gout, unspecified; Z68.30 Body mass index [BMI] 30.0-30.9, adult; I25.2 Old myocardial infarction; Z79.01 Long term (current) use of anticoagulants; Z79.899 Other long term (current) drug therapy; Z82.49 Family history of ischemic heart disease and other diseases of the circulatory system; Z87.891 Personal history of nicotine dependence; Z88.0 Allergy status to penicillin; Z99.81 Dependence on supplemental oxygen; Z88.8 Allergy status to other drugs, medicaments and biological substances; Y93.89 Activity, other specified; Y92.89 Other specified places as the place of occurrence of the external cause; Y99.8 Other external cause status; M71.21 Synovial cyst of popliteal space [Baker], right knee
CPT/HCPCS: 36415; 71045; 73590; 80048; 80053; 80061; 81003; 82550; 83735; 83880; 84443; 84484; 85025; 93005; 93306; 93971; 99285; J1650; J2270; J2405; J3490; J7040; J7060

== ENCOUNTER → 2022-04-30 | Outpatient (CLI) | payer MEDICARE, MEDICAID ==
[~2022-04-30] MED LIST changes: +ACET-2708 PO; +APIX2.5T PO; +APIX5TAB PO; +ASCO-339 PO; +ASPI-1497 PO; +CHOL200026 PO; +CYAN250010 PO; +DEXL60CA3 PO; +FERR325T23 PO; +IPRA42SP INH; +LORA-250 PO; +P20 PO; +POTA-204 PO; -POTA20TA82 PO; +ZINC220T3 PO
== END | disposition home or self-care (01) ==
LOC: LAB 10:09
PROVIDERS: ATTEND Surgery Vascular Surgery
DX: Z20.822 Contact with and (suspected) exposure to COVID-19 (principal)
CPT/HCPCS: 87426; C9803

== ENCOUNTER 2022-05-02 05:15 | Inpatient (IN) | payer MEDICARE, MEDICAID ==
[2022-05-02] VITALS (21 sets, daily range): BP systolic 100–183; BP diastolic 54–86
[~2022-05-02] VITALS: Ht 167.6 cm; Wt 81.8 kg
[~2022-05-02 05:15] MED LIST changes: -APIX2.5T PO; -ASCO-316 PO; -ASPI-1497 PO; -PANT40TA51 PO
[2022-05-02 06:08] LABS: BASOPHILS % 0.8 % (0.0-2.0); EOSINOPHILS % 2.7 % (0.0-5.0); HEMOGLOBIN. 12.1 g/dL (12.0-16.0); LYMPHOCYTES % 19.9 % (20.0-50.0); MEAN CORPUSCULAR HEMOGLOBIN 26.5 pg (28.0-32.0); MEAN PLATELET VOLUME 9.2 fl (7.4-10.4); MONOCYTES % 7.8 % (2.0-8.0); NEUTROPHILS % 68.8 % (40.0-76.0); PLATELET 197 x1000/uL (130-400); RED BLOOD CELL COUNT 4.58 mill/uL (4.2-5.4); RED CELL DISTRIBUTION WIDTH 19.3 % (11.6-14.6)
[2022-05-02 06:17] LABS: PARTIAL THROMBOPLASTIN TIME 32.2 sec (23.4-31.0); PROTHROMBIN TIME 11.1 sec (9.6-11.0)
[2022-05-02] MEDS ORDERED: POLYMYXIN B SULFATE 500000 UNITS/VIAL ONE (06:36)
[2022-05-02] MEDS ORDERED: LIDOCAINE HCL 1% 10 MG/ML 10ML VIAL ONE (06:36)
[2022-05-02] MEDS ORDERED: HEPARIN SODIUM 1,000 UNIT/1ML VIAL IV ONE ×2 (06:36→07:05)
[2022-05-02] MEDS ORDERED: BACITRACIN 15GM TUBE TOP ONE (06:36)
[2022-05-02] MEDS ORDERED: THROMBIN (BOVINE) 5000 UNITS/VIAL TOP ONE (06:36)
[2022-05-02] MEDS ORDERED: BUPIVACAINE HCL/PF 0.5% (5MG/ML) 10ML ONE ×2 (06:37→09:19)
[2022-05-02] MEDS ORDERED: PAPAVERINE HCL 30 MG/ML 2ML IV ONE (06:58)
[2022-05-02] MEDS ORDERED: SODIUM CHLORIDE 0.9% 1,000 ML IV SCH (07:00)
[2022-05-02] MEDS ORDERED: HEPARIN 1000 UNITS/ML 10ML ONE (07:06)
[2022-05-02] MEDS ORDERED: NALOXONE HCL 0.4MG/ML VIAL IV PRN (07:30)
[2022-05-02] MEDS ORDERED: ALBUTEROL 6.7GM HFA INHALER ONE (07:53)
[2022-05-02] MEDS ORDERED: ASPI-1497 PO (07:56)
[2022-05-02] MEDS ORDERED: ONDANSETRON HCL 4MG/2ML INJ IV PRN (08:15)
[2022-05-02] MEDS ORDERED: MEPERIDINE HCL/PF 25MG/ML CPJ IV PRN (08:15)
[2022-05-02] MEDS ORDERED: LABETALOL 5MG/ML SYR 20 MG/4 ML SYRINGE IV PRN (08:15)
[2022-05-02] MEDS ORDERED: LIDOCAINE HCL 1% 20ML VIAL (Pyxis) INJ ONE (09:19)
[2022-05-02] MEDS: IPRATROPIUM/ALBUTEROL 0.5-3(2.5)MG/3ML NEB HHN PRN ×2 (09:55→13:10)
[2022-05-02 10:36] LABS: BG BASE EXCESS -4.8 mmol/L (-2.0-2.0); BG CARBOXYHEMOGLOBIN 0.4 % (0.5-1.5); BG DEOXYHEMOGLOBIN 2.4 % (0.0-5.0); BG FRACTION INSPIRED OXYGEN 100; BG HCO3 ACT 22.1 mmol/L (22.0-26.0); BG METHEMOGLOBIN 0.3 % (0.0-1.5); BG OXYGEN SATURATION 97.6 % (92.0-98.5); BG OXYHEMOGLOBIN 96.9 % (94.0-97.0); BG PCO2 48.2 mmHg (35.0-45.0); BG PO2 116.2 mmHg (75.0-100.0); BG SAMPLE SITE RIGHT RADIAL; BG TOTAL HEMOGLOBIN 13.6 g/dL (12.0-18.0); BG VENT MODE VENT - AC
[2022-05-02] MEDS ORDERED: HYDRALAZINE 20MG/ML VIAL IV NR (10:45)
[2022-05-02] MEDS ORDERED: NICARDIPINE 100 MG in SODIUM CHLORIDE 0.9% 60 ML IV PRN (10:45)
[2022-05-02] MEDS: HYDROMORPHONE HCL/PF 2MG/ML CPJ IV PRN ×2 (10:51→12:34)
[2022-05-02] MEDS ORDERED: NICARDIPINE 40MG/200ML PREMIX 200 ML IV PRN (12:15)
[2022-05-02 13:54] LABS: BG BASE EXCESS -4.3 mmol/L (-2.0-2.0); BG CARBOXYHEMOGLOBIN 0.7 % (0.5-1.5); BG DEOXYHEMOGLOBIN 1.5 % (0.0-5.0); BG FRACTION INSPIRED OXYGEN 90; BG HCO3 ACT 20.8 mmol/L (22.0-26.0); BG OXYGEN SATURATION 98.5 % (92.0-98.5); BG OXYHEMOGLOBIN 97.8 % (94.0-97.0); BG PCO2 38.3 mmHg (35.0-45.0); BG PH 7.353 (7.350-7.450); BG PO2 145.5 mmHg (75.0-100.0); BG SAMPLE SITE RIGHT BRACHIAL; BG TOTAL HEMOGLOBIN 12.8 g/dL (12.0-18.0); BG VENT MODE VENT - AC
[2022-05-02] MEDS: LORAZEPAM 2MG/ML CPJ IV PRN (13:59)
[2022-05-02] MEDS: ISOSORB DINIT/HYDRALAZINE HCL 20/37.5MG TABLET PO SCH ×2 (14:00→21:39)
[2022-05-02] MEDS: DILTIAZEM HCL 30MG TABLET PO SCH ×2 (14:00→20:46)
[2022-05-02 16:17] LABS: BG BASE EXCESS -6.1 mmol/L (-2.0-2.0); BG CARBOXYHEMOGLOBIN 0.9 % (0.5-1.5); BG DEOXYHEMOGLOBIN 8.1 % (0.0-5.0); BG FRACTION INSPIRED OXYGEN 30; BG HCO3 ACT 19.8 mmol/L (22.0-26.0); BG METHEMOGLOBIN 0.1 % (0.0-1.5); BG OXYGEN SATURATION 91.8 % (92.0-98.5); BG OXYHEMOGLOBIN 90.9 % (94.0-97.0); BG PCO2 40.3 mmHg (35.0-45.0); BG PH 7.309 (7.350-7.450); BG PO2 66.7 mmHg (75.0-100.0); BG SAMPLE SITE RIGHT RADIAL; BG TOTAL HEMOGLOBIN 13.3 g/dL (12.0-18.0); BG VENT MODE VENT - CPAP
[2022-05-02] MEDS: HYDRALAZINE 20MG/ML VIAL IV PRN (17:54)
[2022-05-02] MEDS: PROPOFOL 10MG/ML 100ML 100 ML IV PRN (19:16)
[2022-05-02] MEDS: BUDESONIDE 0.5MG/2ML NEB HHN SCH (20:39)
[2022-05-02] MEDS: IPRATROPIUM/ALBUTEROL 0.5-3(2.5)MG/3ML NEB HHN SCH (20:39)
[2022-05-02] MEDS: AMLODIPINE 5MG TABLET PO SCH (20:46)
[2022-05-02] MEDS: MORPHINE SULFATE 4 MG/ML CPJ (NOT FOR IM USE) IV PRN (22:42)
[2022-05-03] VITALS (46 sets, daily range): BP systolic 98–214; BP diastolic 42–142
[2022-05-03] MEDS: IPRATROPIUM/ALBUTEROL 0.5-3(2.5)MG/3ML NEB HHN SCH ×7 (00:39→23:49)
[2022-05-03] MEDS: PROPOFOL 10MG/ML 100ML 100 ML IV PRN (04:13)
[2022-05-03] MEDS: DILTIAZEM HCL 30MG TABLET PO SCH ×3 (05:05→21:43)
[2022-05-03] MEDS: ISOSORB DINIT/HYDRALAZINE HCL 20/37.5MG TABLET PO SCH ×3 (05:05→21:43)
[2022-05-03 06:24] LABS: BASOPHILS % 0.1 % (0.0-2.0); HEMOGLOBIN. 11.6 g/dL (12.0-16.0); MEAN CORPUSCULAR HEMOGLOBIN 26.7 pg (28.0-32.0); MEAN CORPUSCULAR VOLUME 83.1 fL (81.0-99.0); MEAN PLATELET VOLUME 9.4 fl (7.4-10.4); MONOCYTES % 7.7 % (2.0-8.0); NEUTROPHILS % 81.2 % (40.0-76.0); PLATELET 201 x1000/uL (130-400); RED BLOOD CELL COUNT 4.33 mill/uL (4.2-5.4); RED CELL DISTRIBUTION WIDTH 19.2 % (11.6-14.6)
[2022-05-03 08:21] LABS: BG CARBOXYHEMOGLOBIN 0.8 % (0.5-1.5); BG DEOXYHEMOGLOBIN 2.4 % (0.0-5.0); BG FRACTION INSPIRED OXYGEN 40; BG HCO3 ACT 20.5 mmol/L (22.0-26.0); BG METHEMOGLOBIN 0.3 % (0.0-1.5); BG OXYGEN SATURATION 97.6 % (92.0-98.5); BG OXYHEMOGLOBIN 96.5 % (94.0-97.0); BG PH 7.424 (7.350-7.450); BG PO2 100.7 mmHg (75.0-100.0); BG SAMPLE SITE RIGHT RADIAL; BG VENT MODE VENT - AC
[2022-05-03] MEDS: BUDESONIDE 0.5MG/2ML NEB HHN SCH ×2 (08:25→20:09)
[2022-05-03] MEDS: AMLODIPINE 5MG TABLET PO SCH ×2 (09:29→21:43)
[2022-05-03 12:31] LABS: BG BASE EXCESS -2.2 mmol/L (-2.0-2.0); BG CARBOXYHEMOGLOBIN 0.7 % (0.5-1.5); BG DEOXYHEMOGLOBIN 2.3 % (0.0-5.0); BG FRACTION INSPIRED OXYGEN 40; BG METHEMOGLOBIN 0.2 % (0.0-1.5); BG OXYGEN SATURATION 97.7 % (92.0-98.5); BG OXYHEMOGLOBIN 96.8 % (94.0-97.0); BG PH 7.404 (7.350-7.450); BG PO2 103.9 mmHg (75.0-100.0); BG SAMPLE SITE RIGHT BRACHIAL; BG TOTAL HEMOGLOBIN 12.8 g/dL (12.0-18.0); BG VENT MODE VENT - CPAP
[2022-05-03] MEDS: MORPHINE SULFATE 4 MG/ML CPJ (NOT FOR IM USE) IV PRN (13:03)
[2022-05-03] MEDS: HYDRALAZINE 20MG/ML VIAL IV PRN (15:38)
[2022-05-03] MEDS ORDERED: DILTIAZEM HCL 5MG/ML 5ML VIAL IV NR (17:02)
[2022-05-03] MEDS ORDERED: DILTIAZEM 125MG/125ML PMX 125 ML IV PRN (17:15)
[2022-05-03] MEDS: DILTIAZEM HCL 125 MG in DEXTROSE 5% WATER 125 ML IV PRN (18:13)
[2022-05-03] MEDS: PANTOPRAZOLE SODIUM 40 MG/VIAL IV SCH (18:20)
[2022-05-03] MEDS: NICARDIPINE 50 MG in SODIUM CHLORIDE 0.9% 250 ML IV PRN (19:06)
[2022-05-03] MEDS: HYDROCODONE/ACETAMINOPHEN 5/325MG TABLET PO PRN (21:47)
[2022-05-04] VITALS (45 sets, daily range): BP systolic 116–168; BP diastolic 43–103
[2022-05-04] MEDS: NICARDIPINE 50 MG in SODIUM CHLORIDE 0.9% 250 ML IV PRN ×5 (02:11→21:20)
[2022-05-04 05:17] LABS: BASOPHILS % 0.2 % (0.0-2.0); HEMATOCRIT. 37.5 % (36.0-48.0); HEMOGLOBIN. 12.1 g/dL (12.0-16.0); LYMPHOCYTES % 12.8 % (20.0-50.0); MEAN CORPUSCULAR VOLUME 83.7 fL (81.0-99.0); MEAN PLATELET VOLUME 9.6 fl (7.4-10.4); MONOCYTES % 8.4 % (2.0-8.0); NEUTROPHILS % 78.6 % (40.0-76.0); PLATELET 200 x1000/uL (130-400); RED BLOOD CELL COUNT 4.48 mill/uL (4.2-5.4); RED CELL DISTRIBUTION WIDTH 19.5 % (11.6-14.6)
[2022-05-04 05:36] LABS: FERRITIN 121 ng/mL (10-291)
[2022-05-04 06:07] LABS: VITAMIN B12 SERUM 1827 pg/mL (211-911)
[2022-05-04] MEDS: ISOSORB DINIT/HYDRALAZINE HCL 20/37.5MG TABLET PO SCH ×3 (06:27→21:48)
[2022-05-04] MEDS: DILTIAZEM HCL 30MG TABLET PO SCH ×3 (06:28→21:48)
[2022-05-04 06:50] LABS: FOLIC ACID (FOLATE) SERUM > 20.00 ng/mL (>5.38)
[2022-05-04] MEDS: BUDESONIDE 0.5MG/2ML NEB HHN SCH ×2 (08:45→20:07)
[2022-05-04] MEDS: IPRATROPIUM/ALBUTEROL 0.5-3(2.5)MG/3ML NEB HHN SCH ×4 (08:50→20:08)
[2022-05-04] MEDS: AMLODIPINE 5MG TABLET PO SCH ×2 (09:00→21:47)
[2022-05-04] MEDS: PANTOPRAZOLE SODIUM 40 MG/VIAL IV SCH (10:34)
[2022-05-04] MEDS: IRON SUCROSE COMPLEX 100 MG/5 ML ML IV SCH (13:21)
[2022-05-04] MEDS: METOCLOPRAMIDE HCL 10MG/2ML VIAL IV SCH ×2 (13:23→17:38)
[2022-05-04] MEDS: MORPHINE SULFATE 4 MG/ML CPJ (NOT FOR IM USE) IV PRN (13:24)
[2022-05-04] MEDS: DILTIAZEM HCL 125 MG in DEXTROSE 5% WATER 125 ML IV PRN (16:43)
[2022-05-04] MEDS: SODIUM CHLORIDE 0.9% 1,000 ML IV SCH (17:38)
[2022-05-04] MEDS ORDERED: NICARDIPINE 100 MG in SODIUM CHLORIDE 0.9% 100 ML IV PRN (22:43)
[2022-05-05] VITALS (46 sets, daily range): BP systolic 109–165; BP diastolic 45–101
[2022-05-05] MEDS: METOCLOPRAMIDE HCL 10MG/2ML VIAL IV SCH ×4 (00:12→17:20)
[2022-05-05] MEDS: LORAZEPAM 2MG/ML CPJ IV PRN ×2 (00:12→13:32)
[2022-05-05] MEDS: IPRATROPIUM/ALBUTEROL 0.5-3(2.5)MG/3ML NEB HHN SCH ×4 (00:16→11:54)
[2022-05-05] MEDS: NICARDIPINE 100 MG in SODIUM CHLORIDE 0.9% 100 ML IV PRN ×3 (01:06→12:35)
[2022-05-05] MEDS: SODIUM CHLORIDE 0.9% 1,000 ML IV SCH ×2 (04:26→14:32)
[2022-05-05 05:24] LABS: BASOPHILS % 0.4 % (0.0-2.0); EOSINOPHILS % 0.3 % (0.0-5.0); HEMATOCRIT. 36.9 % (36.0-48.0); HEMOGLOBIN. 11.6 g/dL (12.0-16.0); LYMPHOCYTES % 9.8 % (20.0-50.0); MEAN CORPUSCULAR HEMOGLOBIN 26.8 pg (28.0-32.0); MEAN CORPUSCULAR VOLUME 85.1 fL (81.0-99.0); MEAN PLATELET VOLUME 9.5 fl (7.4-10.4); MONOCYTES % 8.6 % (2.0-8.0); NEUTROPHILS % 80.9 % (40.0-76.0); PLATELET 203 x1000/uL (130-400); RED BLOOD CELL COUNT 4.34 mill/uL (4.2-5.4); RED CELL DISTRIBUTION WIDTH 19.5 % (11.6-14.6)
[2022-05-05 05:58] LABS: CHLORIDE 113 mEq/L (98-107)
[2022-05-05 06:06] LABS: HDL CHOLESTEROL 45 mg/dL (40-59); LDL CHOLESTEROL 72 mg/dL (5-100)
[2022-05-05] MEDS: ISOSORB DINIT/HYDRALAZINE HCL 20/37.5MG TABLET PO SCH ×3 (06:16→21:36)
[2022-05-05] MEDS: DILTIAZEM HCL 30MG TABLET PO SCH (06:16)
[2022-05-05] MEDS: PANTOPRAZOLE SODIUM 40 MG/VIAL IV SCH (09:35)
[2022-05-05] MEDS: AMLODIPINE 5MG TABLET PO SCH (09:36)
[2022-05-05] MEDS: DILTIAZEM HCL 90MG TABLET PO SCH ×3 (11:34→17:20)
[2022-05-05] MEDS: BUDESONIDE 0.5MG/2ML NEB HHN SCH ×2 (11:54→20:28)
[2022-05-05] MEDS: IRON SUCROSE COMPLEX 100 MG/5 ML ML IV SCH (11:56)
[2022-05-05 15:42] LABS: BG BASE EXCESS -5.4 mmol/L (-2.0-2.0); BG CARBOXYHEMOGLOBIN 0.9 % (0.5-1.5); BG DEOXYHEMOGLOBIN 13.3 % (0.0-5.0); BG FRACTION INSPIRED OXYGEN 36; BG HCO3 ACT 18.6 mmol/L (22.0-26.0); BG METHEMOGLOBIN 0.1 % (0.0-1.5); BG OXYGEN SATURATION 86.6 % (92.0-98.5); BG OXYHEMOGLOBIN 85.7 % (94.0-97.0); BG PCO2 31.4 mmHg (35.0-45.0); BG PO2 49.9 mmHg (75.0-100.0); BG TOTAL HEMOGLOBIN 12.2 g/dL (12.0-18.0); BG VENT MODE NASAL CANNULA
[2022-05-05] MEDS: IPRATROPIUM BROMIDE (0.02%) 0.5MG/2.5ML NEB HHN SCH ×2 (15:54→20:28)
[2022-05-06] VITALS (93 sets, daily range): BP systolic 98–171; BP diastolic 22–122
[2022-05-06] MEDS: IPRATROPIUM BROMIDE (0.02%) 0.5MG/2.5ML NEB HHN SCH ×5 (00:43→20:22)
[2022-05-06] MEDS: DILTIAZEM HCL 90MG TABLET PO SCH ×5 (00:45→23:06)
[2022-05-06] MEDS: METOCLOPRAMIDE HCL 10MG/2ML VIAL IV SCH ×5 (00:46→23:07)
[2022-05-06] MEDS: SODIUM CHLORIDE 0.9% 1,000 ML IV SCH (02:18)
[2022-05-06] MEDS: NICARDIPINE 100 MG in SODIUM CHLORIDE 0.9% 100 ML IV PRN ×3 (04:22→19:56)
[2022-05-06 05:35] LABS: BASOPHILS % 0.4 % (0.0-2.0); EOSINOPHILS % 0.3 % (0.0-5.0); HEMATOCRIT. 36.6 % (36.0-48.0); HEMOGLOBIN. 11.6 g/dL (12.0-16.0); LYMPHOCYTES % 7.8 % (20.0-50.0); MEAN CORPUSCULAR HEMOGLOBIN 27.1 pg (28.0-32.0); MEAN CORPUSCULAR VOLUME 85.9 fL (81.0-99.0); MEAN PLATELET VOLUME 9.4 fl (7.4-10.4); MONOCYTES % 10.7 % (2.0-8.0); NEUTROPHILS % 80.8 % (40.0-76.0); PLATELET 201 x1000/uL (130-400); RED BLOOD CELL COUNT 4.27 mill/uL (4.2-5.4); RED CELL DISTRIBUTION WIDTH 19.7 % (11.6-14.6)
[2022-05-06] MEDS: ISOSORB DINIT/HYDRALAZINE HCL 20/37.5MG TABLET PO SCH ×3 (05:43→21:30)
[2022-05-06] MEDS: BUDESONIDE 0.5MG/2ML NEB HHN SCH ×2 (07:45→20:22)
[2022-05-06] MEDS: PANTOPRAZOLE SODIUM 40 MG/VIAL IV SCH (08:34)
[2022-05-06 09:16] LABS: BG BASE EXCESS -7.3 mmol/L (-2.0-2.0); BG CARBOXYHEMOGLOBIN 0.7 % (0.5-1.5); BG DEOXYHEMOGLOBIN 7.7 % (0.0-5.0); BG FRACTION INSPIRED OXYGEN 44; BG METHEMOGLOBIN 0.1 % (0.0-1.5); BG OXYGEN SATURATION 92.2 % (92.0-98.5); BG OXYHEMOGLOBIN 91.5 % (94.0-97.0); BG PCO2 30.9 mmHg (35.0-45.0); BG PH 7.359 (7.350-7.450); BG PO2 65.2 mmHg (75.0-100.0); BG SAMPLE SITE RIGHT BRACHIAL; BG TOTAL HEMOGLOBIN 12.5 g/dL (12.0-18.0); BG VENT MODE NASAL CANNULA
[2022-05-06] MEDS: SODIUM CHLORIDE 0.45% 1,000 ML IV SCH (12:44)
[2022-05-06] MEDS: IRON SUCROSE COMPLEX 100 MG/5 ML ML IV SCH (12:44)
[2022-05-06] MEDS: ENOXAPARIN 80MG/0.8ML SYR SUBCUT SCH ×2 (12:45→23:07)
[2022-05-06] MEDS: HYDRALAZINE HCL 50MG TABLET PO SCH ×2 (13:11→21:29)
[2022-05-06] MEDS: HYDROCODONE/ACETAMINOPHEN 5/325MG TABLET PO PRN ×2 (17:02→21:45)
[2022-05-07] VITALS (93 sets, daily range): BP systolic 109–181; BP diastolic 42–113
[2022-05-07] MEDS: IPRATROPIUM BROMIDE (0.02%) 0.5MG/2.5ML NEB HHN SCH ×7 (00:36→23:41)
[2022-05-07] MEDS ORDERED: SODIUM BICARBONATE 8.4% 1 MEQ/ML 50ML SYR IV NR (00:45)
[2022-05-07] MEDS: SODIUM CHLORIDE 0.45% 1,000 ML IV SCH ×2 (01:42→17:00)
[2022-05-07] MEDS: NICARDIPINE 100 MG in SODIUM CHLORIDE 0.9% 100 ML IV PRN (05:17)
[2022-05-07] MEDS: METOCLOPRAMIDE HCL 10MG/2ML VIAL IV SCH ×4 (05:17→23:06)
[2022-05-07] MEDS: ISOSORB DINIT/HYDRALAZINE HCL 20/37.5MG TABLET PO SCH ×3 (05:18→21:27)
[2022-05-07] MEDS: DILTIAZEM HCL 90MG TABLET PO SCH ×4 (05:18→23:06)
[2022-05-07] MEDS: HYDRALAZINE HCL 50MG TABLET PO SCH ×3 (05:19→21:27)
[2022-05-07 05:52] LABS: BASOPHILS % 0.6 % (0.0-2.0); EOSINOPHILS % 0.9 % (0.0-5.0); HEMATOCRIT. 33.5 % (36.0-48.0); HEMOGLOBIN. 10.5 g/dL (12.0-16.0); LYMPHOCYTES % 11.5 % (20.0-50.0); MEAN CORPUSCULAR HEMOGLOBIN 26.9 pg (28.0-32.0); MEAN CORPUSCULAR VOLUME 85.4 fL (81.0-99.0); MEAN PLATELET VOLUME 9.5 fl (7.4-10.4); MONOCYTES % 10.7 % (2.0-8.0); NEUTROPHILS % 76.3 % (40.0-76.0); PLATELET 190 x1000/uL (130-400); RED BLOOD CELL COUNT 3.92 mill/uL (4.2-5.4); RED CELL DISTRIBUTION WIDTH 19.5 % (11.6-14.6)
[2022-05-07 08:16] LABS: BG BASE EXCESS -3.7 mmol/L (-2.0-2.0); BG CARBOXYHEMOGLOBIN 1.1 % (0.5-1.5); BG DEOXYHEMOGLOBIN 4.5 % (0.0-5.0); BG FRACTION INSPIRED OXYGEN 45; BG HCO3 ACT 20.8 mmol/L (22.0-26.0); BG OXYGEN SATURATION 95.4 % (92.0-98.5); BG OXYHEMOGLOBIN 94.4 % (94.0-97.0); BG PCO2 35.4 mmHg (35.0-45.0); BG PH 7.386 (7.350-7.450); BG PO2 77.2 mmHg (75.0-100.0); BG SAMPLE SITE RIGHT RADIAL; BG TOTAL HEMOGLOBIN 11.9 g/dL (12.0-18.0); BG VENT MODE MASK - BIPAP
[2022-05-07 09:17] LABS: PHOSPHORUS 2.1 mg/dL (2.5-4.9)
[2022-05-07] MEDS: BUDESONIDE 0.5MG/2ML NEB HHN SCH ×2 (09:27→20:26)
[2022-05-07] MEDS: PANTOPRAZOLE SODIUM 40 MG/VIAL IV SCH (09:47)
[2022-05-07] MEDS ORDERED: FAMOTIDINE 20MG/2ML VIAL IV NR (11:15)
[2022-05-07] MEDS ORDERED: METHYLPREDNISOLONE SOD SUCC 40 MG/ML VIAL IV NR (11:15)
[2022-05-07] MEDS ORDERED: DIPHENHYDRAMINE 50MG/ML VIAL IV NR (11:30)
[2022-05-07] MEDS: ENOXAPARIN 80MG/0.8ML SYR SUBCUT SCH ×2 (11:35→23:05)
[2022-05-07] MEDS ORDERED: EPINEPHRINE 1:1000 1 MG/ML AMP NEB NR (12:00)
[2022-05-07] MEDS ORDERED: MORPHINE SULFATE 4 MG/ML CPJ (NOT FOR IM USE) IV PRN (20:30)
[2022-05-07] MEDS ORDERED: NALOXONE HCL 0.4MG/ML VIAL IV PRN (20:45)
[2022-05-07] MEDS: METOPROLOL TARTRATE 25MG TABLET PO SCH (21:22)
[2022-05-07] MEDS: HYDROCODONE/ACETAMINOPHEN 5/325MG TABLET PO PRN (21:28)
[2022-05-07] MEDS: LORAZEPAM 0.5MG TABLET PO PRN (23:06)
[2022-05-08] VITALS (96 sets, daily range): BP systolic 73–167; BP diastolic 28–95
[2022-05-08] MEDS: NICARDIPINE 100 MG in SODIUM CHLORIDE 0.9% 100 ML IV PRN (01:07)
[2022-05-08] MEDS: IPRATROPIUM BROMIDE (0.02%) 0.5MG/2.5ML NEB HHN SCH ×4 (03:55→20:13)
[2022-05-08 05:17] LABS: BASOPHILS % 0.1 % (0.0-2.0); HEMATOCRIT. 37.1 % (36.0-48.0); HEMOGLOBIN. 11.7 g/dL (12.0-16.0); LYMPHOCYTES % 11.7 % (20.0-50.0); MEAN CORPUSCULAR HEMOGLOBIN 26.7 pg (28.0-32.0); MEAN PLATELET VOLUME 10.2 fl (7.4-10.4); MONOCYTES % 4.5 % (2.0-8.0); NEUTROPHILS % 83.7 % (40.0-76.0); PLATELET 225 x1000/uL (130-400); RED BLOOD CELL COUNT 4.36 mill/uL (4.2-5.4)
[2022-05-08] MEDS: METOCLOPRAMIDE HCL 10MG/2ML VIAL IV SCH ×4 (06:35→23:55)
[2022-05-08] MEDS: HYDRALAZINE HCL 50MG TABLET PO SCH (06:35)
[2022-05-08] MEDS: ISOSORB DINIT/HYDRALAZINE HCL 20/37.5MG TABLET PO SCH (06:36)
[2022-05-08] MEDS: DILTIAZEM HCL 90MG TABLET PO SCH ×4 (06:36→23:55)
[2022-05-08 08:31] LABS: BG BASE EXCESS -2.7 mmol/L (-2.0-2.0); BG CARBOXYHEMOGLOBIN 0.6 % (0.5-1.5); BG FRACTION INSPIRED OXYGEN 40; BG HCO3 ACT 20.6 mmol/L (22.0-26.0); BG METHEMOGLOBIN 0.1 % (0.0-1.5); BG OXYHEMOGLOBIN 92.3 % (94.0-97.0); BG PCO2 30.9 mmHg (35.0-45.0); BG PH 7.441 (7.350-7.450); BG PO2 65.1 mmHg (75.0-100.0); BG SAMPLE SITE RIGHT RADIAL; BG TOTAL HEMOGLOBIN 11.8 g/dL (12.0-18.0); BG VENT MODE NASAL CANNULA
[2022-05-08] MEDS: SODIUM CHLORIDE 0.45% 1,000 ML IV SCH ×2 (08:35→22:15)
[2022-05-08] MEDS: PANTOPRAZOLE SODIUM 40 MG/VIAL IV SCH (08:35)
[2022-05-08] MEDS: METOPROLOL TARTRATE 25MG TABLET PO SCH ×2 (08:36→22:14)
[2022-05-08] MEDS: BUDESONIDE 0.5MG/2ML NEB HHN SCH ×2 (08:52→20:13)
[2022-05-08] MEDS: ENOXAPARIN 80MG/0.8ML SYR SUBCUT SCH ×2 (11:18→22:15)
[2022-05-08] MEDS ORDERED: SORBITOL 70% SOLN 30ML PO NR (12:00)
[2022-05-08] MEDS: HYDRALAZINE HCL 100MG TABLET PO SCH ×2 (15:05→22:15)
[2022-05-09] VITALS (79 sets, daily range): BP systolic 114–194; BP diastolic 49–151
[2022-05-09] MEDS: IPRATROPIUM BROMIDE (0.02%) 0.5MG/2.5ML NEB HHN SCH ×6 (00:17→20:15)
[2022-05-09 05:39] LABS: BASOPHILS % 0.1 % (0.0-2.0); EOSINOPHILS % 0.2 % (0.0-5.0); HEMATOCRIT. 37.9 % (36.0-48.0); LYMPHOCYTES % 12.5 % (20.0-50.0); MEAN CORPUSCULAR HEMOGLOBIN 27.1 pg (28.0-32.0); MEAN CORPUSCULAR VOLUME 85.4 fL (81.0-99.0); MEAN PLATELET VOLUME 9.4 fl (7.4-10.4); MONOCYTES % 10.1 % (2.0-8.0); NEUTROPHILS % 77.1 % (40.0-76.0); PLATELET 224 x1000/uL (130-400); RED BLOOD CELL COUNT 4.43 mill/uL (4.2-5.4); RED CELL DISTRIBUTION WIDTH 19.9 % (11.6-14.6)
[2022-05-09] MEDS: DILTIAZEM HCL 90MG TABLET PO SCH ×3 (05:46→18:06)
[2022-05-09] MEDS: HYDRALAZINE HCL 100MG TABLET PO SCH ×3 (05:46→20:49)
[2022-05-09] MEDS: METOCLOPRAMIDE HCL 10MG/2ML VIAL IV SCH ×4 (05:46→18:24)
[2022-05-09 08:11] LABS: BG BASE EXCESS -1.3 mmol/L (-2.0-2.0); BG CARBOXYHEMOGLOBIN 0.7 % (0.5-1.5); BG DEOXYHEMOGLOBIN 3.4 % (0.0-5.0); BG FRACTION INSPIRED OXYGEN 44; BG HCO3 ACT 23.6 mmol/L (22.0-26.0); BG METHEMOGLOBIN 0.2 % (0.0-1.5); BG OXYGEN SATURATION 96.6 % (92.0-98.5); BG OXYHEMOGLOBIN 95.7 % (94.0-97.0); BG PCO2 40.3 mmHg (35.0-45.0); BG PH 7.386 (7.350-7.450); BG PO2 90.7 mmHg (75.0-100.0); BG SAMPLE SITE RIGHT RADIAL; BG TOTAL HEMOGLOBIN 12.7 g/dL (12.0-18.0); BG VENT MODE NASAL CANNULA
[2022-05-09] MEDS: PANTOPRAZOLE SODIUM 40 MG/VIAL IV SCH (08:51)
[2022-05-09] MEDS: METOPROLOL TARTRATE 25MG TABLET PO SCH ×4 (08:51→20:50)
[2022-05-09] MEDS: BUDESONIDE 0.5MG/2ML NEB HHN SCH ×2 (09:06→20:15)
[2022-05-09] MEDS: HYDROCODONE/ACETAMINOPHEN 5/325MG TABLET PO PRN (09:29)
[2022-05-09] MEDS ORDERED: SORBITOL 70% SOLN 30ML PO NR (10:45)
[2022-05-09] MEDS: ENOXAPARIN 80MG/0.8ML SYR SUBCUT SCH ×2 (11:16→23:10)
[2022-05-09] MEDS ORDERED: LACTULOSE 20G/30ML UDC PO PRN (12:15)
[2022-05-09] MEDS: SODIUM CHLORIDE 0.45% 1,000 ML IV SCH (15:20)
[2022-05-09] MEDS ORDERED: BISACODYL 10MG SUPP PR PRN (18:00)
[2022-05-09] MEDS: SENNOSIDES/DOCUSATE SOD 8.6/50MG TABLET PO SCH (20:50)
[2022-05-09] MEDS: NICARDIPINE 100 MG in SODIUM CHLORIDE 0.9% 100 ML IV PRN (20:51)
[2022-05-10] VITALS (84 sets, daily range): BP systolic 121–173; BP diastolic 48–114
[2022-05-10] MEDS: DILTIAZEM HCL 90MG TABLET PO SCH ×3 (00:11→11:00)
[2022-05-10] MEDS: METOCLOPRAMIDE HCL 10MG/2ML VIAL IV SCH ×5 (00:11→23:44)
[2022-05-10] MEDS: IPRATROPIUM BROMIDE (0.02%) 0.5MG/2.5ML NEB HHN SCH ×6 (00:24→20:56)
[2022-05-10] MEDS: LORAZEPAM 0.5MG TABLET PO PRN (01:34)
[2022-05-10] MEDS: METOPROLOL TARTRATE 25MG TABLET PO SCH ×2 (05:41→12:58)
[2022-05-10] MEDS: HYDRALAZINE HCL 100MG TABLET PO SCH ×3 (05:41→21:28)
[2022-05-10] MEDS: SODIUM CHLORIDE 0.45% 1,000 ML IV SCH (05:42)
[2022-05-10] MEDS: PANTOPRAZOLE SODIUM 40 MG/VIAL IV SCH (08:41)
[2022-05-10] MEDS: BUDESONIDE 0.5MG/2ML NEB HHN SCH ×2 (09:22→20:56)
[2022-05-10] MEDS: ENOXAPARIN 80MG/0.8ML SYR SUBCUT SCH ×2 (10:25→23:36)
[2022-05-10] MEDS ORDERED: POTASSIUM CHLORIDE 20MEQ TABLET SR PO NR (14:00)
[2022-05-10] MEDS: DILTIAZEM HCL 60MG TABLET PO SCH ×2 (17:20→23:42)
[2022-05-10] MEDS: HYDROCODONE/ACETAMINOPHEN 5/325MG TABLET PO PRN (18:19)
[2022-05-10] MEDS: SENNOSIDES/DOCUSATE SOD 8.6/50MG TABLET PO SCH (21:28)
[2022-05-10] MEDS: METOPROLOL TARTRATE 50MG TABLET PO SCH (21:28)
[2022-05-10] MEDS: NICARDIPINE 100 MG in SODIUM CHLORIDE 0.9% 100 ML IV PRN (21:29)
[2022-05-11] VITALS (92 sets, daily range): BP systolic 119–178; BP diastolic 55–108
[2022-05-11] MEDS: IPRATROPIUM BROMIDE (0.02%) 0.5MG/2.5ML NEB HHN SCH ×6 (00:51→20:00)
[2022-05-11] MEDS: LORAZEPAM 0.5MG TABLET PO PRN (03:39)
[2022-05-11 05:42] LABS: BASOPHILS % 0.4 % (0.0-2.0); EOSINOPHILS % 1.6 % (0.0-5.0); HEMATOCRIT. 35.4 % (36.0-48.0); HEMOGLOBIN. 11.3 g/dL (12.0-16.0); LYMPHOCYTES % 19.2 % (20.0-50.0); MEAN CORPUSCULAR HEMOGLOBIN 27.1 pg (28.0-32.0); MEAN CORPUSCULAR VOLUME 85.2 fL (81.0-99.0); MEAN PLATELET VOLUME 9.6 fl (7.4-10.4); MONOCYTES % 10.8 % (2.0-8.0); PLATELET 178 x1000/uL (130-400); RED BLOOD CELL COUNT 4.16 mill/uL (4.2-5.4); RED CELL DISTRIBUTION WIDTH 19.4 % (11.6-14.6)
[2022-05-11] MEDS: METOPROLOL TARTRATE 50MG TABLET PO SCH ×3 (06:20→21:11)
[2022-05-11] MEDS: DILTIAZEM HCL 60MG TABLET PO SCH (06:20)
[2022-05-11] MEDS: HYDRALAZINE HCL 100MG TABLET PO SCH ×3 (06:21→21:10)
[2022-05-11] MEDS: METOCLOPRAMIDE HCL 10MG/2ML VIAL IV SCH ×2 (06:21→23:34)
[2022-05-11 06:34] LABS: CHLORIDE 110 mEq/L (98-107)
[2022-05-11] MEDS: BUDESONIDE 0.5MG/2ML NEB HHN SCH ×2 (08:14→20:00)
[2022-05-11] MEDS: PANTOPRAZOLE SODIUM 40 MG/VIAL IV SCH (08:37)
[2022-05-11] MEDS: DILTIAZEM HCL 90MG TABLET PO SCH ×3 (12:00→23:34)
[2022-05-11] MEDS: ENOXAPARIN 80MG/0.8ML SYR SUBCUT SCH ×2 (14:17→23:06)
[2022-05-11] MEDS: HYDRALAZINE 20MG/ML VIAL IV PRN ×2 (14:17→14:21)
[2022-05-11] MEDS: NICARDIPINE 100 MG in SODIUM CHLORIDE 0.9% 100 ML IV PRN ×2 (14:18→21:18)
[2022-05-11] MEDS: SENNOSIDES/DOCUSATE SOD 8.6/50MG TABLET PO SCH (21:10)
[2022-05-11] MEDS: AMLODIPINE 5MG TABLET PO SCH (21:11)
[2022-05-12] VITALS (91 sets, daily range): BP systolic 123–189; BP diastolic 48–119
[2022-05-12] MEDS: IPRATROPIUM BROMIDE (0.02%) 0.5MG/2.5ML NEB HHN SCH ×6 (01:01→20:30)
[2022-05-12] MEDS: LORAZEPAM 0.5MG TABLET PO PRN ×2 (02:03→08:24)
[2022-05-12] MEDS: METOCLOPRAMIDE HCL 10MG/2ML VIAL IV SCH ×6 (06:00→23:25)
[2022-05-12] MEDS: DILTIAZEM HCL 90MG TABLET PO SCH ×4 (06:10→23:26)
[2022-05-12] MEDS: METOPROLOL TARTRATE 50MG TABLET PO SCH ×3 (06:10→21:45)
[2022-05-12] MEDS: HYDRALAZINE HCL 100MG TABLET PO SCH ×3 (06:12→21:45)
[2022-05-12] MEDS: HYDROCODONE/ACETAMINOPHEN 5/325MG TABLET PO PRN (08:26)
[2022-05-12] MEDS: NICARDIPINE 100 MG in SODIUM CHLORIDE 0.9% 100 ML IV PRN (08:55)
[2022-05-12] MEDS: BUDESONIDE 0.5MG/2ML NEB HHN SCH ×2 (09:27→20:29)
[2022-05-12] MEDS: AMLODIPINE 5MG TABLET PO SCH ×2 (10:02→21:48)
[2022-05-12] MEDS: PANTOPRAZOLE SODIUM 40 MG/VIAL IV SCH (10:02)
[2022-05-12] MEDS: ENOXAPARIN 80MG/0.8ML SYR SUBCUT SCH ×2 (10:05→23:26)
[2022-05-12] MEDS ORDERED: LOSARTAN POTASSIUM 50 MG TABLET PO SCH (10:15)
[2022-05-12] MEDS: NITROGLYCERIN OINT 1GM/INCH UDPKT TD SCH ×4 (11:06→23:26)
[2022-05-12] MEDS: ASCORBIC ACID 500 MG TABLET PO SCH (17:53)
[2022-05-12] MEDS: FERROUS SULFATE 325MG TABLET PO SCH (17:53)
[2022-05-12] MEDS: SENNOSIDES/DOCUSATE SOD 8.6/50MG TABLET PO SCH (21:44)
[2022-05-13] VITALS (91 sets, daily range): BP systolic 122–180; BP diastolic 41–120
[2022-05-13] MEDS: IPRATROPIUM BROMIDE (0.02%) 0.5MG/2.5ML NEB HHN SCH ×6 (00:35→23:44)
[2022-05-13] MEDS: NITROGLYCERIN OINT 1GM/INCH UDPKT TD SCH ×4 (03:26→18:05)
[2022-05-13] MEDS: METOPROLOL TARTRATE 50MG TABLET PO SCH ×3 (05:35→20:26)
[2022-05-13] MEDS: DILTIAZEM HCL 90MG TABLET PO SCH ×4 (05:35→23:13)
[2022-05-13] MEDS: HYDRALAZINE HCL 100MG TABLET PO SCH ×3 (05:35→20:29)
[2022-05-13] MEDS: METOCLOPRAMIDE HCL 10MG/2ML VIAL IV SCH ×4 (05:36→23:13)
[2022-05-13] MEDS: NICARDIPINE 100 MG in SODIUM CHLORIDE 0.9% 100 ML IV PRN (06:27)
[2022-05-13 06:49] LABS: BASOPHILS % 0.3 % (0.0-2.0); EOSINOPHILS % 2.8 % (0.0-5.0); HEMOGLOBIN. 10.5 g/dL (12.0-16.0); LYMPHOCYTES % 19.7 % (20.0-50.0); MEAN CORPUSCULAR HEMOGLOBIN 27.4 pg (28.0-32.0); MEAN PLATELET VOLUME 10.4 fl (7.4-10.4); MONOCYTES % 11.5 % (2.0-8.0); NEUTROPHILS % 65.7 % (40.0-76.0); PLATELET 134 x1000/uL (130-400); RED BLOOD CELL COUNT 3.83 mill/uL (4.2-5.4); RED CELL DISTRIBUTION WIDTH 19.1 % (11.6-14.6)
[2022-05-13] MEDS: FERROUS SULFATE 325MG TABLET PO SCH ×2 (08:37→18:06)
[2022-05-13] MEDS: ASCORBIC ACID 500 MG TABLET PO SCH ×2 (08:37→18:05)
[2022-05-13] MEDS: PANTOPRAZOLE SODIUM 40 MG/VIAL IV SCH (08:38)
[2022-05-13] MEDS: AMLODIPINE 5MG TABLET PO SCH ×2 (08:39→20:26)
[2022-05-13] MEDS ORDERED: HYDROCODONE/ACETAMINOPHEN 5/325MG TABLET PO PRN (09:00)
[2022-05-13] MEDS: ENOXAPARIN 80MG/0.8ML SYR SUBCUT SCH ×2 (10:58→23:13)
[2022-05-13] MEDS: NICARDIPINE 100 MG in SODIUM CHLORIDE 0.9% 60 ML IV SCH (11:05)
[2022-05-13] MEDS: BUDESONIDE 0.5MG/2ML NEB HHN SCH ×2 (15:30→21:04)
[2022-05-13] MEDS: SENNOSIDES/DOCUSATE SOD 8.6/50MG TABLET PO SCH (20:27)
[2022-05-14] VITALS (78 sets, daily range): BP systolic 113–175; BP diastolic 52–115
[2022-05-14] MEDS: NITROGLYCERIN OINT 1GM/INCH UDPKT TD SCH ×2 (00:40→06:07)
[2022-05-14] MEDS: METOPROLOL TARTRATE 50MG TABLET PO SCH ×3 (05:06→21:48)
[2022-05-14] MEDS: DILTIAZEM HCL 90MG TABLET PO SCH ×3 (05:06→18:27)
[2022-05-14] MEDS: HYDRALAZINE HCL 100MG TABLET PO SCH ×3 (05:25→21:48)
[2022-05-14] MEDS: METOCLOPRAMIDE HCL 10MG/2ML VIAL IV SCH ×3 (05:25→18:27)
[2022-05-14] MEDS: NICARDIPINE 100 MG in SODIUM CHLORIDE 0.9% 60 ML IV SCH (05:28)
[2022-05-14 06:19] LABS: BASOPHILS % 0.4 % (0.0-2.0); EOSINOPHILS % 2.2 % (0.0-5.0); HEMATOCRIT. 31.3 % (36.0-48.0); HEMOGLOBIN. 9.8 g/dL (12.0-16.0); LYMPHOCYTES % 13.8 % (20.0-50.0); MEAN CORPUSCULAR HEMOGLOBIN 27.4 pg (28.0-32.0); MEAN CORPUSCULAR VOLUME 87.3 fL (81.0-99.0); MEAN PLATELET VOLUME 10.2 fl (7.4-10.4); MONOCYTES % 12.4 % (2.0-8.0); NEUTROPHILS % 71.2 % (40.0-76.0); PLATELET 135 x1000/uL (130-400); RED BLOOD CELL COUNT 3.59 mill/uL (4.2-5.4); RED CELL DISTRIBUTION WIDTH 19.7 % (11.6-14.6)
[2022-05-14] MEDS: FERROUS SULFATE 325MG TABLET PO SCH ×2 (10:03→18:27)
[2022-05-14] MEDS: ASCORBIC ACID 500 MG TABLET PO SCH ×2 (10:03→18:27)
[2022-05-14] MEDS: PANTOPRAZOLE SODIUM 40 MG/VIAL IV SCH (10:03)
[2022-05-14] MEDS: IPRATROPIUM BROMIDE (0.02%) 0.5MG/2.5ML NEB HHN SCH ×4 (10:19→20:18)
[2022-05-14] MEDS: BUDESONIDE 0.5MG/2ML NEB HHN SCH ×2 (10:20→20:18)
[2022-05-14] MEDS: ENOXAPARIN 80MG/0.8ML SYR SUBCUT SCH ×2 (11:17→22:37)
[2022-05-14] MEDS ORDERED: LETAIRIS 5MG TABLET XX SCH (12:45)
[2022-05-14] MEDS: NIFEDIPINE XL 60MG TAB PO SCH ×2 (13:36→22:35)
[2022-05-14] MEDS ORDERED: LISINOPRIL 5MG TABLET PO NR (14:00)
[2022-05-14] MEDS: SILDENAFIL CITRATE 20MG TABLET PO SCH ×2 (14:19→22:35)
[2022-05-14] MEDS ORDERED: NITROGLYCERIN OINT 1GM/INCH UDPKT TD SCH (15:00)
[2022-05-14] MEDS: SENNOSIDES/DOCUSATE SOD 8.6/50MG TABLET PO SCH (21:47)
[2022-05-15] VITALS (69 sets, daily range): BP systolic 95–150; BP diastolic 22–101
[2022-05-15] MEDS: IPRATROPIUM BROMIDE (0.02%) 0.5MG/2.5ML NEB HHN SCH ×6 (00:23→21:50)
[2022-05-15] MEDS: DILTIAZEM HCL 90MG TABLET PO SCH (00:27)
[2022-05-15] MEDS: METOCLOPRAMIDE HCL 10MG/2ML VIAL IV SCH ×4 (00:28→17:41)
[2022-05-15] MEDS: METOPROLOL TARTRATE 50MG TABLET PO SCH (05:32)
[2022-05-15] MEDS: HYDRALAZINE HCL 100MG TABLET PO SCH (05:32)
[2022-05-15 05:58] LABS: BASOPHILS % 0.4 % (0.0-2.0); EOSINOPHILS % 2.2 % (0.0-5.0); HEMATOCRIT. 32.3 % (36.0-48.0); HEMOGLOBIN. 10.4 g/dL (12.0-16.0); LYMPHOCYTES % 13.3 % (20.0-50.0); MEAN CORPUSCULAR HEMOGLOBIN 27.6 pg (28.0-32.0); MEAN CORPUSCULAR VOLUME 85.8 fL (81.0-99.0); MEAN PLATELET VOLUME 10.7 fl (7.4-10.4); MONOCYTES % 11.7 % (2.0-8.0); NEUTROPHILS % 72.4 % (40.0-76.0); PLATELET 151 x1000/uL (130-400); RED BLOOD CELL COUNT 3.77 mill/uL (4.2-5.4); RED CELL DISTRIBUTION WIDTH 19.1 % (11.6-14.6)
[2022-05-15] MEDS ORDERED: DILTIAZEM HCL 30MG TABLET PO SCH (06:00)
[2022-05-15] MEDS: SILDENAFIL CITRATE 20MG TABLET PO SCH ×3 (06:43→22:49)
[2022-05-15] MEDS: BUDESONIDE 0.5MG/2ML NEB HHN SCH ×2 (08:07→21:50)
[2022-05-15] MEDS: FERROUS SULFATE 325MG TABLET PO SCH ×2 (08:46→17:40)
[2022-05-15] MEDS: ASCORBIC ACID 500 MG TABLET PO SCH ×2 (08:46→17:40)
[2022-05-15] MEDS: PANTOPRAZOLE SODIUM 40 MG/VIAL IV SCH (08:46)
[2022-05-15] MEDS: NIFEDIPINE XL 60MG TAB PO SCH ×2 (08:53→21:05)
[2022-05-15] MEDS ORDERED: LISINOPRIL 5MG TABLET PO SCH (09:00)
[2022-05-15] MEDS ORDERED: AMLO5TAB4 (09:23)
[2022-05-15 10:52] LABS: BG BASE EXCESS -1.2 mmol/L (-2.0-2.0); BG CARBOXYHEMOGLOBIN 0.9 % (0.5-1.5); BG DEOXYHEMOGLOBIN 5.7 % (0.0-5.0); BG FRACTION INSPIRED OXYGEN 32; BG HCO3 ACT 22.6 mmol/L (22.0-26.0); BG METHEMOGLOBIN 0.3 % (0.0-1.5); BG OXYGEN SATURATION 94.2 % (92.0-98.5); BG OXYHEMOGLOBIN 93.1 % (94.0-97.0); BG PCO2 34.3 mmHg (35.0-45.0); BG PH 7.436 (7.350-7.450); BG PO2 69.9 mmHg (75.0-100.0); BG SAMPLE SITE LEFT RADIAL; BG TOTAL HEMOGLOBIN 11.3 g/dL (12.0-18.0); BG VENT MODE NASAL CANNULA
[2022-05-15] MEDS ORDERED: FUROSEMIDE 40MG/4ML VIAL IVP NR (11:30)
[2022-05-15] MEDS: ENOXAPARIN 80MG/0.8ML SYR SUBCUT SCH ×2 (11:33→22:50)
[2022-05-15] MEDS ORDERED: DILTIAZEM HCL 90MG TABLET PO SCH ×2 (12:00→14:00)
[2022-05-15] MEDS: HYDRALAZINE HCL 50MG TABLET PO SCH ×2 (13:18→22:49)
[2022-05-15] MEDS ORDERED: METOPROLOL TARTRATE 50MG TABLET PO SCH (21:00)
[2022-05-15] MEDS: SENNOSIDES/DOCUSATE SOD 8.6/50MG TABLET PO SCH (21:06)
[2022-05-16] MEDS ORDERED: HYDR-4001 PO (05:02)
[2022-05-16] MEDS ORDERED: LORA-249 PO (05:02)
== END 2022-05-16 00:01 | DRG 252 ==
LOC: OR 05:15 → CVICU 15:11
PROVIDERS: ADMIT Surgery Vascular Surgery; ATTEND Surgery Vascular Surgery
PROC: 5A1945Z Respiratory Ventilation, 24-96 Consecutive Hours (ICD-10-PCS; principal; 2022-05-02)
PROC: 041K0JH Bypass Right Femoral Artery to Right Femoral Artery with Synthetic Substitute, Open Approach (ICD-10-PCS; 2022-05-02)
PROC: 4A00X4Z Measurement of Central Nervous Electrical Activity, External Approach (ICD-10-PCS; 2022-05-05)
PROC: 5A09357 Assistance with Respiratory Ventilation, Less than 24 Consecutive Hours, Continuous Positive Airway Pressure (ICD-10-PCS; 2022-05-05)
PROC: 5A09357 Assistance with Respiratory Ventilation, Less than 24 Consecutive Hours, Continuous Positive Airway Pressure (ICD-10-PCS; 2022-05-06)
PROC: 5A09357 Assistance with Respiratory Ventilation, Less than 24 Consecutive Hours, Continuous Positive Airway Pressure (ICD-10-PCS; 2022-05-06)
PROC: 5A09357 Assistance with Respiratory Ventilation, Less than 24 Consecutive Hours, Continuous Positive Airway Pressure (ICD-10-PCS; 2022-05-08)
PROC: 5A09357 Assistance with Respiratory Ventilation, Less than 24 Consecutive Hours, Continuous Positive Airway Pressure (ICD-10-PCS; 2022-05-09)
DX: I74.5 Embolism and thrombosis of iliac artery (principal); I63.9 Cerebral infarction, unspecified; J96.21 Acute and chronic respiratory failure with hypoxia; J96.22 Acute and chronic respiratory failure with hypercapnia; I13.0 Hypertensive heart and chronic kidney disease with heart failure and stage 1 through stage 4 chronic kidney disease, or unspecified chronic kidney disease; I48.20 Chronic atrial fibrillation, unspecified; N17.9 Acute kidney failure, unspecified; K56.7 Ileus, unspecified; K56.609 Unspecified intestinal obstruction, unspecified as to partial versus complete obstruction; I27.20 Pulmonary hypertension, unspecified; D50.9 Iron deficiency anemia, unspecified; N18.9 Chronic kidney disease, unspecified; I50.9 Heart failure, unspecified; I25.10 Atherosclerotic heart disease of native coronary artery without angina pectoris; D63.1 Anemia in chronic kidney disease; E53.8 Deficiency of other specified B group vitamins; M10.9 Gout, unspecified; E55.9 Vitamin D deficiency, unspecified; I73.9 Peripheral vascular disease, unspecified; K59.00 Constipation, unspecified; E78.5 Hyperlipidemia, unspecified; K21.9 Gastro-esophageal reflux disease without esophagitis; J44.9 Chronic obstructive pulmonary disease, unspecified; K40.20 Bilateral inguinal hernia, without obstruction or gangrene, not specified as recurrent; L50.9 Urticaria, unspecified; R13.10 Dysphagia, unspecified; Z88.0 Allergy status to penicillin; Z79.01 Long term (current) use of anticoagulants; Z79.82 Long term (current) use of aspirin; Z79.899 Other long term (current) drug therapy; Z99.81 Dependence on supplemental oxygen
CPT/HCPCS: 36415; 36600; 70551; 71045; 74018; 74176; 80048; 80053; 80061; 82375; 82607; 82728; 82746; 82805; 82962; 83540; 83550; 83735; 84100; 84145; 84443; 84478; 85025; 87070; 87426; 92610; 93005; 93880; 94003; 94640; 94660; 95816; 97116; 97162; 97166; 97530; C1768; C1893; C9113; C9803; J0360; J1170; J1200; J1644; J1650; J1940; J2060; J2270; J2440; J2704; J2765; J2920; J3490; J7030; J7050; J7060; J7626

== ENCOUNTER 2022-08-26 14:43 | Emergency (ER) | payer MEDICARE, MEDICAID ==
[~2022-08-26] VITALS: Ht 165.1 cm; Wt 85.0 kg
[~2022-08-26 14:43] MED LIST changes: -ALBUTEROL INHALER INH; -ALLO100T PO; -AMBR5TAB3 PO; -CLON0.2T PO; -DEXL60CA3 PO; -DILT240C91 PO; -FERR325T23 PO; -HYDR-4001 MT; +HYDR-4135 PO; -IPRA42SP INH; +LEVO250T74 MT; +LISI2.5T47 PO; -LORA-250 PO; +METO25TA6 PO; +NIFE-32 PO; -OLME40TA18 MT; -P20 PO; +PANT40TA51 PO; -POTA-204 PO
[2022-08-26 16:01] LABS: BASOPHILS % 1.1 % (0.0-2.0); EOSINOPHILS % 3.4 % (0.0-5.0); HEMATOCRIT. 36.5 % (36.0-48.0); HEMOGLOBIN. 11.6 g/dL (12.0-16.0); LYMPHOCYTES % 17.6 % (20.0-50.0); MEAN CORPUSCULAR HEMOGLOBIN 27.3 pg (28.0-32.0); MEAN CORPUSCULAR VOLUME 85.8 fL (81.0-99.0); MEAN PLATELET VOLUME 10.1 fl (7.4-10.4); MONOCYTES % 8.1 % (2.0-8.0); NEUTROPHILS % 69.8 % (40.0-76.0); PLATELET 194 x1000/uL (130-400); RED BLOOD CELL COUNT 4.26 mill/uL (4.2-5.4); RED CELL DISTRIBUTION WIDTH 17.8 % (11.6-14.6)
[2022-08-26 16:09] LABS: PROTHROMBIN TIME 11.2 sec (9.6-11.0)
[2022-08-26 16:10] LABS: CHLORIDE 111 mEq/L (98-107)
[2022-08-26] MEDS ORDERED: ACETAMINOPHEN 325MG TABLET PO ONE (16:15)
[2022-08-26] MEDS ORDERED: FUROSEMIDE 20MG/2ML VIAL IVP ONE (17:45)
[2022-08-26] MEDS ORDERED: HYDRALAZINE 20MG/ML VIAL IV ONE (18:00)
[2022-08-26 18:13] VITALS: BP 175/74
== END 2022-08-26 18:47 | disposition home or self-care (01) ==
LOC: ER 14:43
DX: I11.0 Hypertensive heart disease with heart failure (principal); I50.9 Heart failure, unspecified; J44.9 Chronic obstructive pulmonary disease, unspecified; Z98.890 Other specified postprocedural states; Z79.899 Other long term (current) drug therapy; Z88.0 Allergy status to penicillin
CPT/HCPCS: 36415; 70450; 71045; 80053; 84484; 85025; 85610; 93005; 96374; 96375; 99285; J0360; J1940

== ENCOUNTER 2022-10-04 03:45 | Emergency (ER) | payer MEDICARE, MEDICAID ==
[~2022-10-04] VITALS: Ht 167.6 cm; Wt 78.0 kg
[2022-10-04 03:58] VITALS: BP 150/46
[2022-10-04 06:53] LABS: BASOPHILS % 1.1 % (0.0-2.0); EOSINOPHILS % 3.2 % (0.0-5.0); HEMOGLOBIN. 11.5 g/dL (12.0-16.0); LYMPHOCYTES % 17.3 % (20.0-50.0); MEAN CORPUSCULAR HEMOGLOBIN 26.9 pg (28.0-32.0); MEAN CORPUSCULAR VOLUME 84.3 fL (81.0-99.0); MEAN PLATELET VOLUME 9.7 fl (7.4-10.4); MONOCYTES % 7.7 % (2.0-8.0); NEUTROPHILS % 70.7 % (40.0-76.0); PLATELET 202 x1000/uL (130-400); RED BLOOD CELL COUNT 4.27 mill/uL (4.2-5.4); RED CELL DISTRIBUTION WIDTH 18.2 % (11.6-14.6)
[2022-10-04 07:54] LABS: INR 1.1; PARTIAL THROMBOPLASTIN TIME 36.5 sec (23.4-31.0); PROTHROMBIN TIME 11.4 sec (9.6-11.0)
[2022-10-04] MEDS ORDERED: TRANEXAMIC ACID 1,000 MG/10 ML TP ONE (11:30)
== END 2022-10-04 12:53 | disposition home or self-care (01) ==
LOC: ER 03:45
DX: R04.0 Epistaxis (principal)
CPT/HCPCS: 30901; 36415; 80048; 85025; 86850; 86900; 99284

== ENCOUNTER 2022-10-05 13:58 | Emergency (ER) | payer MEDICARE, MEDICAID ==
[~2022-10-05] VITALS: Ht 167.6 cm; Wt 78.0 kg
[2022-10-05 14:23] VITALS: BP 194/90
[2022-10-05] MEDS ORDERED: CLONIDINE 0.2MG TABLET PO ONE (15:15)
== END 2022-10-05 16:22 | disposition home or self-care (01) ==
LOC: ER 13:58
DX: R04.0 Epistaxis (principal); J44.9 Chronic obstructive pulmonary disease, unspecified; I11.0 Hypertensive heart disease with heart failure; I50.9 Heart failure, unspecified; Z79.899 Other long term (current) drug therapy
CPT/HCPCS: 30901; 99284

== ENCOUNTER 2024-05-26 08:37 | Inpatient (IN) | payer MEDICARE, MEDICAID ==
[~2024-05-26] VITALS: Ht 152.4 cm; Wt 71.3 kg
[~2024-05-26 08:37] MED LIST changes: +APIX2.5T MT; -APIX5TAB PO; +DILT90TA2 PO; +FAMO-287 PO; +FOLI1TAB87 PO; -HYDR-4135 PO; +HYDR25TA78 PO; -LEVO250T74 MT; -LISI2.5T47 PO; +MELA3TAB40 PO; +METO5TAB2 PO; +MIRT7.5T11 PO; +MONT-39 PO; -NIFE-32 PO; +P20 PO; -PANT40TA51 PO; +SEVE800T8 PO; +SUCR1TAB PO; +TEMA15CA PO
[2024-05-26 09:41] LABS: BASOPHILS % 0.5 % (0.0-2.0); DIFFERENTIAL COMMENT 0; EOSINOPHILS % 0.3 % (0.0-5.0); HEMATOCRIT. 37.7 % (36.0-48.0); HEMOGLOBIN. 11.3 g/dL (12.0-16.0); LYMPHOCYTES % 12.2 % (20.0-50.0); MEAN CORPUSCULAR HGB CONC 29.9 g/dL (31.0-37.0); MEAN CORPUSCULAR VOLUME 90.4 fL (81.0-99.0); MEAN PLATELET VOLUME 10.1 fl (7.4-10.4); MONOCYTES % 6.7 % (2.0-8.0); NEUTROPHILS % 80.3 % (40.0-76.0); PLATELET 180 x1000/uL (130-400); RED BLOOD CELL COUNT 4.17 mill/uL (4.2-5.4); RED CELL DISTRIBUTION WIDTH 19.5 % (11.6-14.6); WHITE BLOOD COUNT 15.7 x1000/uL (4.5-11.0)
[2024-05-26 09:52] LABS: BG BASE EXCESS -0.2 mmol/L (-2.0-3.0); BG CARBOXYHEMOGLOBIN 0.3 % (0.5-1.5); BG DEOXYHEMOGLOBIN 7.9 % (0.0-5.0); BG FRACTION INSPIRED OXYGEN 28; BG METHEMOGLOBIN 0.3 % (0.5-1.5); BG OXYGEN SATURATION 92.1 % (94.0-98.0); BG OXYHEMOGLOBIN 91.5 % (94.0-98.0); BG PCO2 43.1 mmHg (32.0-45.0); BG PH 7.382 (7.350-7.450); BG PO2 68.5 mmHg (83.0-108.0); BG SAMPLE SITE LEFT BRACHIAL; BG TOTAL HEMOGLOBIN 12.1 g/dL (12.0-16.0); BG VENT MODE NASAL CANNULA
[2024-05-26 09:57] LABS: CALCIUM 9.3 mg/dL (8.7-10.4)
[2024-05-26] MEDS: PIPERACILLIN/TAZO 3.375G/50ML 50 ML IV ONE (10:00)
[2024-05-26] MEDS: LACTATED RINGERS 2,100 ML IV ONE (10:35)
[2024-05-26 10:36] LABS: LACTIC ACID 3.7 mmol/L (0.4-2.0)
[2024-05-26] MEDS: VANCOMYCIN 1G PREMIX 200 ML IV ONE (10:56)
[2024-05-26] MEDS ORDERED: LORAZEPAM 0.5MG TABLET PO PRN (11:30)
[2024-05-26] MEDS ORDERED: DOCUSATE SODIUM 100MG CAPSULE PO PRN (11:30)
[2024-05-26] MEDS ORDERED: CLONIDINE 0.1MG TABLET PO PRN (11:30)
[2024-05-26] MEDS ORDERED: ACETAMINOPHEN 325MG TABLET PO PRN (11:30)
[2024-05-26] MEDS: PANTOPRAZOLE SODIUM 40 MG/VIAL IV SCH (11:45)
[2024-05-26] MEDS ORDERED: HYDRALAZINE 20MG/ML VIAL IV ONE (12:00)
[2024-05-26] MEDS: SEVELAMER CARBONATE 800 MG TABLET PO SCH (12:00)
[2024-05-26] MEDS ORDERED: DEXTROSE 50% WATER 50ML SYRINGE IV PRN ×2 (12:15→12:30)
[2024-05-26] MEDS: DILTIAZEM HCL 90MG TABLET PO SCH (12:15)
[2024-05-26] MEDS ORDERED: APIXABAN 2.5 MG TABLET PO SCH (12:30)
[2024-05-26] MEDS ORDERED: LEVOFLOXACIN 750MG PREMIX 150 ML IV NR (12:30)
[2024-05-26 12:44] LABS: INR 2.6
[2024-05-26] MEDS: BLOOD SUGAR DIAGNOSTIC STRIP TEST SCH (13:00)
[2024-05-26 13:05] LABS: PHOSPHORUS 3.5 mg/dL (2.5-4.9)
[2024-05-26] MEDS: INSULIN LISPRO 100 UNITS/ML SUBCUT SCH (13:20)
[2024-05-26] MEDS: LEVOFLOXACIN 500MG PREMIX 100 ML IV NR (13:35)
[2024-05-26] MEDS ORDERED: HYDRALAZINE HCL 25MG TABLET PO SCH (14:00)
[2024-05-26] MEDS ORDERED: LEVOFLOXACIN 250MG PREMIX 50 ML IV NR (14:45)
[2024-05-26 14:51] LABS: HEPATITIS B SURFACE ANTIGEN NEGATIVE (Negative)
[2024-05-26] MEDS: PIPERACILLIN/TAZO 3.375G/50ML 50 ML IV NR (15:03)
[2024-05-26] MEDS: DEXT 5%/0.9% NACL 1,000 ML IV SCH (15:04)
[2024-05-26] MEDS: ENOXAPARIN 80MG/0.8ML SYR SUBCUT NR (15:05)
[2024-05-26] MEDS: METOPROLOL TARTRATE 5MG/5ML VIAL IV SCH (15:06)
[2024-05-26 15:11] LABS: HEPATITIS A AB IGM NEGATIVE (Negative)
[2024-05-26 15:12] LABS: HEPATITIS B CORE AB IGM NEGATIVE (Negative)
[2024-05-26 15:13] LABS: HEPATITIS C AB REACTIVE (Pos) (Negative)
[2024-05-26 16:10] LABS: CREATINE KINASE 22 IU/L (34-145)
[2024-05-26 16:11] LABS: CREATINE KINASE MB FRACTION 2.1 ng/mL (0.5-3.6)
[2024-05-26 16:17] LABS: TROPONIN I HIGH SENSITIVITY 70 ng/L (3.0-34)
[2024-05-26] MEDS ORDERED: METOPROLOL TARTRATE 25MG TABLET PO SCH (17:00)
[2024-05-26] MEDS: VANCOMYCIN 500MG/100ML IV NR (17:51)
[2024-05-26 21:15] VITALS: BP 112/72; PULSE 112; RESP 30; TEMP 36.78072; O2SAT 95
[2024-05-26 21:30] VITALS: BP 114/66; PULSE 104; RESP 23; O2SAT 94
[2024-05-26 22:00] VITALS: BP 117/78; PULSE 107; RESP 35; O2SAT 97
[2024-05-26 22:33] VITALS: BP 93/70; PULSE 101; RESP 22; O2SAT 96
[2024-05-26] MEDS: ATORVASTATIN CALCIUM 20MG TABLET PO SCH (22:35)
[2024-05-26] MEDS: MIRTAZAPINE 15MG TABLET PO SCH (22:35)
[2024-05-26 23:00] VITALS: BP_SYST 103; BP_SYST 122; BP_DIAS 69; BP_DIAS 70; PULSE 105; PULSE 106; RESP 21; RESP 22; TEMP 36.8072; O2SAT 97
[2024-05-26] MEDS: PIPERACILLIN/TAZO 3.375G/50ML 50 ML IV SCH (23:42)
[2024-05-27] VITALS (21 sets, daily range): BP systolic 91–137; BP diastolic 51–87; PULSE 96–144; RESP 16–40; TEMP 36.16956–36.83628; O2SAT 95–100
[2024-05-27 00:26] LABS: CREATINE KINASE MB FRACTION 1.7 ng/mL (0.5-3.6)
[2024-05-27] MEDS: ACETYLCYSTEINE 200MG/ML 20% VIAL 4ML INH SCH (00:52)
[2024-05-27] MEDS ORDERED: BUDESONIDE 0.5MG/2ML NEB HHN SCH (08:00)
[2024-05-27] MEDS: IPRATROPIUM/ALBUTEROL 0.5-3(2.5)MG/3ML NEB HHN SCH (08:15)
[2024-05-27] MEDS: ASPIRIN 81MG EC TABLET PO SCH (09:00)
[2024-05-27] MEDS: LORATADINE 10MG TABLET PO SCH (09:00)
[2024-05-27] MEDS: FAMOTIDINE 20MG TABLET PO SCH (09:00)
[2024-05-27] MEDS: FLUTICASONE PROPIONATE 50MCG/SPRAY BOTTLE BOTHNSTRLS SCH (09:30)
[2024-05-27 12:19] LABS: BASOPHILS % 0.9 % (0.0-2.0); EOSINOPHILS % 1.1 % (0.0-5.0); HEMATOCRIT. 31.8 % (36.0-48.0); HEMOGLOBIN. 10.2 g/dL (12.0-16.0); LYMPHOCYTES % 25.3 % (20.0-50.0); MEAN CORPUSCULAR HEMOGLOBIN 27.3 pg (28.0-32.0); MEAN CORPUSCULAR VOLUME 85.1 fL (81.0-99.0); MONOCYTES % 11.6 % (2.0-8.0); NEUTROPHILS % 61.1 % (40.0-76.0); PLATELET 148 x1000/uL (130-400); RED BLOOD CELL COUNT 3.73 mill/uL (4.2-5.4); RED CELL DISTRIBUTION WIDTH 18.4 % (11.6-14.6); WHITE BLOOD COUNT 7.5 x1000/uL (4.5-11.0)
[2024-05-27 12:41] LABS: CHLORIDE 103 mEq/L (98-107); POTASSIUM 4.3 mEq/L (3.5-5.1); SODIUM 137 mEq/L (136-145)
[2024-05-27 12:42] LABS: CALCIUM 9.4 mg/dL (8.7-10.4); CARBON DIOXIDE 25 mEq/L (21-32)
[2024-05-27 12:47] LABS: GLUCOSE 74 mg/dL (70-105); UREA NITROGEN BLOOD 40 mg/dL (9-23)
[2024-05-27 12:49] LABS: PHOSPHORUS 3.9 mg/dL (2.5-4.9)
[2024-05-27 13:07] LABS: CREATININE 5.5 mg/dL (0.6-1.0)
[2024-05-27] MEDS: ENOXAPARIN 80MG/0.8ML SYR SUBCUT SCH (15:44)
[2024-05-27] MEDS: METHYLPREDNISOLONE SOD SUCC 125MG/2ML (ACT-O-VIAL) IV NR (16:29)
[2024-05-27] MEDS: MONTELUKAST SODIUM 10MG TABLET PO SCH (16:29)
[2024-05-27] MEDS: AZITHROMYCIN 500MG/250ML 250 ML IV SCH (18:03)
[2024-05-28] VITALS (18 sets, daily range): BP systolic 103–151; BP diastolic 53–86; PULSE 92–143; RESP 19–36; TEMP 36.05844–36.83628; O2SAT 85–100
[2024-05-28] MEDS ORDERED: METHYLPREDNISOLONE SOD SUCC 40MG/ML (ACT-O-VIAL) IV SCH
[2024-05-28] MEDS: FAMOTIDINE 20MG/2ML VIAL IV SCH (01:11)
[2024-05-28] MEDS: METHYLPREDNISOLONE SOD SUCC 40MG/ML (ACT-O-VIAL) IV SCH (01:11)
[2024-05-28 06:50] LABS: BASOPHILS % 0.3 % (0.0-2.0); DIFFERENTIAL COMMENT 0; HEMATOCRIT. 37.9 % (36.0-48.0); HEMOGLOBIN. 11.4 g/dL (12.0-16.0); LYMPHOCYTES % 14.5 % (20.0-50.0); MEAN CORPUSCULAR HEMOGLOBIN 26.5 pg (28.0-32.0); MEAN CORPUSCULAR HGB CONC 30.1 g/dL (31.0-37.0); MEAN CORPUSCULAR VOLUME 87.9 fL (81.0-99.0); MEAN PLATELET VOLUME 10.6 fl (7.4-10.4); MONOCYTES % 1.9 % (2.0-8.0); NEUTROPHILS % 83.3 % (40.0-76.0); PLATELET 159 x1000/uL (130-400); RED BLOOD CELL COUNT 4.31 mill/uL (4.2-5.4); RED CELL DISTRIBUTION WIDTH 19.4 % (11.6-14.6); WHITE BLOOD COUNT 6.4 x1000/uL (4.5-11.0)
[2024-05-28 07:07] LABS: POTASSIUM 4.2 mEq/L (3.5-5.1)
[2024-05-28 07:08] LABS: CALCIUM 9.8 mg/dL (8.7-10.4)
[2024-05-28 07:13] LABS: CREATININE 4.1 mg/dL (0.6-1.0)
[2024-05-28] MEDS ORDERED: LEVOFLOXACIN 500MG PREMIX 100 ML IV SCH (11:00)
[2024-05-28] MEDS: VANCOMYCIN 750MG/150ML (BAXTER) IV NR (11:23)
[2024-05-28] MEDS: MAGNESIUM 2 G PREMIX 50 ML IV NR (11:24)
[2024-05-28] MEDS: DILTIAZEM HCL 90MG TABLET PO NR (11:45)
[2024-05-28 13:17] LABS: BG BASE EXCESS -3.9 mmol/L (-2.0-3.0); BG CARBOXYHEMOGLOBIN 0.7 % (0.5-1.5); BG DEOXYHEMOGLOBIN 1.6 % (0.0-5.0); BG HCO3 ACT 21.2 mmol/L (21.0-28.0); BG METHEMOGLOBIN 0.3 % (0.5-1.5); BG OXYGEN SATURATION 98.4 % (94.0-98.0); BG OXYHEMOGLOBIN 97.4 % (94.0-98.0); BG PCO2 38.8 mmHg (32.0-45.0); BG PH 7.356 (7.350-7.450); BG PO2 124.7 mmHg (83.0-108.0); BG SAMPLE SITE RIGHT RADIAL; BG TOTAL HEMOGLOBIN 11.4 g/dL (12.0-16.0); BG VENT MODE NASAL CANNULA
[2024-05-28] MEDS: DOXYCYCLINE 100MG/100ML 100 ML IV SCH (17:54)
[2024-05-28 18:20] LABS: LACTIC ACID 3.4 mmol/L (0.4-2.0)
[2024-05-28 18:22] LABS: AMMONIA < 17 uMol/L (<32)
[2024-05-28] MEDS: DILTIAZEM HCL 90MG TABLET PO SCH (21:44)
[2024-05-29] VITALS (15 sets, daily range): BP systolic 119–157; BP diastolic 61–98; PULSE 98–131; RESP 18–39; TEMP 36.28068–36.9474; O2SAT 91–99
[2024-05-29 06:57] LABS: INR 1.1; PROTHROMBIN TIME 11.7 sec (9.6-11.0)
[2024-05-29 07:04] LABS: POTASSIUM 4.7 mEq/L (3.5-5.1)
[2024-05-29 07:05] LABS: CALCIUM 10.2 mg/dL (8.7-10.4)
[2024-05-29 07:06] LABS: BASOPHILS % 0.3 % (0.0-2.0); HEMATOCRIT. 34.5 % (36.0-48.0); HEMOGLOBIN. 11.1 g/dL (12.0-16.0); LYMPHOCYTES % 16.8 % (20.0-50.0); MEAN CORPUSCULAR HEMOGLOBIN 27.4 pg (28.0-32.0); MEAN CORPUSCULAR HGB CONC 32.2 g/dL (31.0-37.0); MEAN PLATELET VOLUME 9.7 fl (7.4-10.4); MONOCYTES % 3.8 % (2.0-8.0); NEUTROPHILS % 79.1 % (40.0-76.0); PLATELET 168 x1000/uL (130-400); RED BLOOD CELL COUNT 4.06 mill/uL (4.2-5.4); RED CELL DISTRIBUTION WIDTH 18.5 % (11.6-14.6); WHITE BLOOD COUNT 6.4 x1000/uL (4.5-11.0)
[2024-05-29 08:12] LABS: CREATININE 5.2 mg/dL (0.6-1.0)
[2024-05-29] MEDS: METHYLPREDNISOLONE SOD SUCC 40MG/ML (ACT-O-VIAL) IV SCH (21:48)
[2024-05-29] MEDS: FUROSEMIDE 40MG TABLET PO SCH (21:49)
[2024-05-29] MEDS: ACETAMINOPHEN 325MG TABLET PO PRN (23:17)
[2024-05-30] VITALS (17 sets, daily range): BP systolic 132–157; BP diastolic 81–108; PULSE 94–126; RESP 14–28; TEMP 35.8362–36.89184; O2SAT 91–100
[2024-05-30] MEDS: IPRATROPIUM/ALBUTEROL 0.5-3(2.5)MG/3ML NEB HHN PRN (08:36)
[2024-05-31] VITALS (25 sets, daily range): BP systolic 132–176; BP diastolic 76–123; PULSE 89–138; RESP 2–29; TEMP 36.16956–36.6696; O2SAT 88–100
[2024-05-31] MEDS: IPRATROPIUM/ALBUTEROL 0.5-3(2.5)MG/3ML NEB HHN SCH (02:19)
[2024-05-31 05:54] LABS: CARBON DIOXIDE 22 mEq/L (21-32); CHLORIDE 99 mEq/L (98-107); POTASSIUM 4.1 mEq/L (3.5-5.1); SODIUM 134 mEq/L (136-145)
[2024-05-31 05:59] LABS: GLUCOSE 95 mg/dL (70-105)
[2024-05-31 06:00] LABS: UREA NITROGEN BLOOD 53 mg/dL (9-23)
[2024-05-31 06:02] LABS: PHOSPHORUS 5.3 mg/dL (2.5-4.9)
[2024-05-31 06:14] LABS: CREATININE 6.6 mg/dL (0.6-1.0)
[2024-05-31 08:11] LABS: HEMATOCRIT 32.9 % (36.0-48.0); HEMOGLOBIN 10.7 g/dL (12.0-16.0); MEAN CORPUSCULAR HEMOGLOBIN 27.5 pg (28.0-32.0); MEAN CORPUSCULAR HGB CONC 32.6 g/dL (31.0-37.0); MEAN CORPUSCULAR VOLUME 84.5 fL (81.0-99.0); PLATELET 130 x1000/uL (130-400); RED CELL DISTRIBUTION WIDTH 18.4 % (11.6-14.6); WHITE BLOOD COUNT 6.7 x1000/uL (4.5-11.0)
[2024-05-31] MEDS: PREDNISONE 20MG TABLET PO SCH (21:14)
[2024-06-01] VITALS (11 sets, daily range): BP systolic 105–173; BP diastolic 66–121; PULSE 83–136; RESP 15–29; TEMP 36.28068–37.00296; O2SAT 94–100
[2024-06-01] MEDS: DEXT 5%/0.9% NACL 1,000 ML IV SCH (01:06)
[2024-06-01 06:44] LABS: CALCIUM 9.6 mg/dL (8.7-10.4); CARBON DIOXIDE 21 mEq/L (21-32); CHLORIDE 99 mEq/L (98-107); HEMATOCRIT 29.8 % (36.0-48.0); HEMOGLOBIN 9.5 g/dL (12.0-16.0); MEAN CORPUSCULAR HEMOGLOBIN 27.2 pg (28.0-32.0); MEAN CORPUSCULAR HGB CONC 31.8 g/dL (31.0-37.0); MEAN CORPUSCULAR VOLUME 85.6 fL (81.0-99.0); PLATELET 125 x1000/uL (130-400); POTASSIUM 3.6 mEq/L (3.5-5.1); RED BLOOD CELL COUNT 3.48 mill/uL (4.2-5.4); RED CELL DISTRIBUTION WIDTH 18.4 % (11.6-14.6); SODIUM 134 mEq/L (136-145); WHITE BLOOD COUNT 10.5 x1000/uL (4.5-11.0)
[2024-06-01 06:50] LABS: GLUCOSE 96 mg/dL (70-105); UREA NITROGEN BLOOD 41 mg/dL (9-23)
[2024-06-01 06:52] LABS: PHOSPHORUS 4.9 mg/dL (2.5-4.9)
[2024-06-01 07:56] LABS: CREATININE 5.6 mg/dL (0.6-1.0)
[2024-06-01] MEDS: HYDRALAZINE 20MG/ML VIAL IV PRN (12:56)
[2024-06-01] MEDS: METOPROLOL TARTRATE 25MG TABLET PO SCH (13:13)
[2024-06-01] MEDS: GUAIFENESIN 200MG/10ML SUGAR FREE UDC PO PRN (20:09)
[2024-06-02] VITALS (15 sets, daily range): BP systolic 112–157; BP diastolic 57–110; PULSE 83–114; RESP 14–28; TEMP 36.3918–37.00296; O2SAT 92–100
[2024-06-02 07:17] LABS: CHLORIDE 102 mEq/L (98-107); POTASSIUM 4.3 mEq/L (3.5-5.1); SODIUM 135 mEq/L (136-145)
[2024-06-02 07:18] LABS: CARBON DIOXIDE 16 mEq/L (21-32)
[2024-06-02 07:26] LABS: PHOSPHORUS 5.8 mg/dL (2.5-4.9)
[2024-06-02] MEDS: OXYMETAZOLINE HCL NASAL SPRAY 15ML BOTHNSTRLS SCH (17:53)
== END 2024-06-02 20:00 | DRG 871 ==
LOC: ER 08:37 → 5EST 10:45 → EDBEDREQTM 10:48 → EDBEDREQ 10:48 → EDBEDREQSVC 18:42
PROVIDERS: ADMIT Internal Medicine; ATTEND Internal Medicine
PROC: 5A1D70Z Performance of Urinary Filtration, Intermittent, Less than 6 Hours Per Day (ICD-10-PCS; principal; 2024-05-27)
PROC: 5A1D70Z Performance of Urinary Filtration, Intermittent, Less than 6 Hours Per Day (ICD-10-PCS; 2024-05-31)
PROC: 5A1D70Z Performance of Urinary Filtration, Intermittent, Less than 6 Hours Per Day (ICD-10-PCS; 2024-06-02)
DX: A41.9 Sepsis, unspecified organism (principal); G92.8 Other toxic encephalopathy; R53.2 Functional quadriplegia; J96.21 Acute and chronic respiratory failure with hypoxia; N18.6 End stage renal disease; J69.0 Pneumonitis due to inhalation of food and vomit; I13.2 Hypertensive heart and chronic kidney disease with heart failure and with stage 5 chronic kidney disease, or end stage renal disease; J90 Pleural effusion, not elsewhere classified; E87.20 Acidosis, unspecified; I50.32 Chronic diastolic (congestive) heart failure; J44.0 Chronic obstructive pulmonary disease with (acute) lower respiratory infection; F03.93 Unspecified dementia, unspecified severity, with mood disturbance; I48.19 Other persistent atrial fibrillation; R65.20 Severe sepsis without septic shock; I27.20 Pulmonary hypertension, unspecified; D63.1 Anemia in chronic kidney disease; E87.5 Hyperkalemia; R13.10 Dysphagia, unspecified; Z20.822 Contact with and (suspected) exposure to COVID-19; B18.2 Chronic viral hepatitis C; E11.22 Type 2 diabetes mellitus with diabetic chronic kidney disease; E11.51 Type 2 diabetes mellitus with diabetic peripheral angiopathy without gangrene; E78.5 Hyperlipidemia, unspecified; E87.70 Fluid overload, unspecified; I95.89 Other hypotension; K21.9 Gastro-esophageal reflux disease without esophagitis; D69.6 Thrombocytopenia, unspecified; Z74.01 Bed confinement status; Z86.73 Personal history of transient ischemic attack (TIA), and cerebral infarction without residual deficits; Z99.2 Dependence on renal dialysis; Z79.01 Long term (current) use of anticoagulants; Z88.0 Allergy status to penicillin; Z99.81 Dependence on supplemental oxygen; Z88.8 Allergy status to other drugs, medicaments and biological substances; Z79.899 Other long term (current) drug therapy
CPT/HCPCS: 36415; 36600; 71045; 74230; 76604; 80048; 80051; 80202; 82140; 82375; 82550; 82553; 82805; 82962; 83036; 83605; 83735; 83880; 84100; 84145; 84484; 85025; 85027; 85379; 86705; 86709; 87070; 87340; 87426; 87804; 90935; 92610; 92611; 93005; 93306; 93970; 93971; 94640; 94660; 97162; 97166; 97530; 99291; A6261; J0360; J0456; J1650; J1815; J1956; J2470; J2543; J2919; J2920; J3370; J3475; J3490; J7042; J7120; J7512; J7608